=== PATIENT | male | born 1960 | race Caucasian/White ===

== ENCOUNTER 2022-02-06 17:06 | Inpatient (IN) ==
--- NOTE | 2022-02-06 19:43 | History & Physical Report ---
Date of Service February 06, 2022 Assessment & Plan (1) Postoperative infection: Plan: This is a 61-year-old male with a notable history of hypertension and rheumatoid+psoriatic arthritis (not currently on any therapies) who underwent LEFT carpal tunnel release with UOP on 01/19 who presents to [facility] as a direct transfer from [facility] emergency department for management of postoperative infection. Postoperative Infection involving L Hand - Status post left carpal tunnel release with UOP on 01/19 - [facility]: WBC 19.4 / Lactate 2.07 / CRP 26.9 --> Recheck CBC, BMP now - Consult Dr. Liang for possible I&D tomrrow - NPO after midnight - maintain NSS @ 80cc/hr - Transition to Zosyn for Pseudomonal coverage - Continue vancomycin - Pain: frequent icing, Tylenol 1g q8h IV BELIA, morphine 3mg q3 IV PRN for pain, Dilaudid 0.5mg q6h PRN for breakthrough pain - Recheck cultures before ABX here (initially collected at [facility]) (2) Hypertension: Plan: Hold lisinopril hydrochlorothiazide 20/25 until postoperative Hydralazine PRN for SBPs persistently >160/DBP>110 not relieved with analgesics (3) Rheumatoid arthritis: Plan: Reported history, per patient Not currently on any Biologics or daily prednisone therapy Hold home Celebrex until postoperative Plan: code: full dispo: ms/tele ppx: scds diet: npo History of Present Illness Primary Care Provider: NO PCP This is a 61-year-old male with a notable history of hypertension and rheumatoid+psoriatic arthritis (not currently on any therapies) who underwent LEFT carpal tunnel release with UOP on 01/19 who presents to [facility] as a direct transfer from [facility] emergency department out of concerns for postoperative infection. Patient reportedly began experiencing increased redness and swelling around this area over the last several days. He said that there has been increased pain around the site. He reports mild numbness of the fingertips. His outpatient orthopedist did start him on antibiotics, which he has not begun. Unfortunately despite this, the redness/pain continued and has worsened. He presented to [facility] emergency department out of concerns for infection, who then requested transfer here for I&D capabilities tomorrow. I spoke with the NIC steam station supervisor, Freda, to discuss case and obtain more information. She spoke with Dr. Liang, who agreed to see patient tomorrow for likely I&D. Otherwise, before this event, patient says that his only relevant "health event" was recently having a respiratory illness approximately 4 to 5 days ago, for which he did take prednisone for several days. He has not been on prednisone since this time. He denies taking prednisone as chronic prednisone. Report was received directly from patient's nurse at [facility]. During his ER course, a 20-gauge needle was placed in his right antecubital vein. He received clindamycin at 1443, Unasyn at 1647 and vancomycin at 1647. He was given 1 L of fluid. Dilaudid 1 mg and morphine 4 mg were given at 1600 and 1700, respectively. Labs were significant for sodium 133, potassium 3.5, white count 19.4, CRP 26.9, lactate 2.07. She was afebrile. Allergies Allergy/AdvReac Type Severity Reaction Status Date / Time No Known Allergies Allergy Verified 02/06/22 20:19 Home Medications Medication Instructions Recorded Confirmed Type celecoxib 200 mg capsule 200 mg PO DAILY 02/06/22 02/06/22 History lisinopril 20 20 - 25 tab PO DAILY 02/06/22 02/06/22 History mg-hydrochlorothiazide 25 mg tablet terazosin 1 mg capsule 5 mg PO DAILY 02/06/22 02/06/22 History Past Med/Surg History Social History Smoking Status: Former smoker Second Hand Exposure: No; Do You Dip or Chew Tobacco: No; Hx Alcohol Use: Yes Alcohol type: beer Hx Substance Use: No Preferred Language: Yoruba Supervisor Plastering Required: No Beliefs That Will Affect Care: None Current Living Situation: Spouse Other Information That Helps Us Care for You: No Feels Safe at Home: Yes Safety Concerns: Feels Safe At This Time Assistive Devices: Glasses Review of Systems Review of Systems: as per HPI Physical Exam Physical Exam: General: 61-year old male who is alert, oriented, and appears in no acute distress. Body habitus: _. HEENT: NCAT. - Eyes - Sclera are white, anicteric, and without injection. PERRL. - Mouth - MMM with no tonsillar edema or exudates. - Neck - no JVD Cardiac: Normal rate and regular rhythm; S1 and S2 present with no murmurs, rubs, or gallops. Pulmonary: Good respiratory effort with symmetric expansion of the chest. No use of accessory muscles. Lungs were clear to auscultation bilaterally with no crackles or wheezes. Abdominal: Normoactive bowel sounds. Abdomen was soft, nondistended, and non- tender to palpation. Extremities: Examination of the left hand does reveal extensive edematous and erythematous changes with dried pus-like material surrounding the surgical wound; it is nondraining. Edema is worse on the palmar surface. Wrist flexion/extension is greatly limited due to pain and swelling. Finger flexion/extension is also greatly limited due to pain. Capillary refill is 2 seconds at the distal fingertips. Radial pulse is 2+. RUE unremarkable. Supervising Physician Co-Signing Physician Notes Attending addendum: I have supervised the medical residents activities, and agree with the H&P unless as otherwise noted. Assessment and Plan: Postop infection involving left hand- Status post left carpal tunnel release on 01/19 Initially seen at [facility] ED earlier this evening, and referred for direct admission to [facility] Patient will be admitted to medical service, with consult to Dr. Rodney from orthopedic surgery for possible I&D tomorrow Follow blood cultures and sensitivities, initially drawn [facility] Acetaminophen 1 g IV every 8 hours. Mild pain or fever Morphine sulfate 3 mg IV every 3 hours as needed moderate pain Dilaudid 0.5 mg IV every 6 hours as needed breakthrough pain Hypertension Hold lisinopril/HCTZ until postop hydralazine 10 mg IV every 4 hours. Systolic blood pressure greater 160 or diastolic greater than 110 Remaining orders and notations as noted Resident Activity Tracking Resident Involvement: Resident Care Provided Care Provided: Adult Hospital Medicine
[2022-02-06] MEDS ORDERED: PIPERACILL/TAZOBAC CONSULT ACTIVE PRN (20:24)
[2022-02-06] MEDS ORDERED: HYDROmorphone INJ 0.5 MG/0.5 ML SYR IV PRN (20:24)
[2022-02-06] MEDS ORDERED: VANCOMYCIN CONSULT ACTIVE PRN (20:24)
[2022-02-06] MEDS ORDERED: hydrALAZINE HCL 20 MG/ML VIAL IV PRN ×2 (20:28→20:29)
[2022-02-06] MEDS ORDERED: PATIENT'S HEIGHT AND/OR WEIGHT NEEDED SCH (20:30)
[2022-02-06] MEDS ORDERED: PIPERACILLIN/TAZOBACTAM 3.375 GM in DEXTROSE 5% 100 ML IV SCH (20:30)
[2022-02-06] MEDS: MoRPHine SULFATE 4 MG/ML 1 ML CARP\\VIAL IV PRN (20:48)
[2022-02-06] MEDS ORDERED: KETOROLAC TROMETHAMINE 15 MG/ML VIAL IV ONE (21:01)
[2022-02-06 21:06] LABS: Basophils # (auto) 0.03 K/uL (0-0.2); Basophils % (auto) 0.2 %; Eosinophils # (auto) 0.18 K/uL (0-0.5); Eosinophils % (auto) 0.9 %; Hematocrit (blood only) 46.6 % (42-52); Hemoglobin 16.2 g/dL (14.0-18.0); Immature Granulocytes # (auto) 0.11 K/uL (0.00-0.02); Immature Granulocytes % (auto) 0.6 %; Lymphocytes # (auto) 1.56 K/uL (1.2-3.4); Lymphocytes % (auto) 8.1 %; Mean Corpuscular Hemoglobin 29.7 pg (25-34); Mean Corpuscular Hgb Conc 34.8 g/dL (32-36); Mean Corpuscular Volume 85.5 fL (80-100); Mean Platelet Volume 9.6 fL (7.4-10.4); Monocytes % (auto) 8.8 %; Neutrophils # (auto) 15.66 K/uL (1.4-6.5); Neutrophils % (auto) 81.4 %; Platelet Count 272 K/uL (130-400); RDW Coefficient of Variation 13.6 % (11.5-14.5); RDW Standard Deviation 42.5 fL (36.4-46.3); Red Blood Count 5.45 M/uL (4.7-6.1); White Blood Count 19.24 K/uL (4.8-10.8)
[2022-02-06 21:20] LABS: Alanine Aminotransferase 60 U/L (7-52); Albumin Globulin Ratio 1.2 (0.9-2); Albumin Level 3.8 gm/dl (3.4-5.0); Alkaline Phosphatase 164 U/L (34-104); Anion Gap 11 (3-11); BUN Creatinine Ratio 19.3 (10-20); Bilirubin,Total 0.7 mg/dl (0.2-1.0); Blood Urea Nitrogen 17 mg/dl (6-23); Calcium 8.9 mg/dl (8.5-10.1); Carbon Dioxide 21 mmol/L (21-32); Chloride 98 mmol/L (98-107); Est GFR (African American) 108.2 ml/min; Est GFR (Non-African American) 93.4 ml/min; Globulin 3.2 gm/dl (2.5-4.0); Glucose 168 mg/dl (70-99(Fasting)); Sodium 130 mmol/L (136-145)
[2022-02-06 21:55] LABS: Potassium 3.3 mmol/L (3.5-5.1)
[2022-02-06] MEDS: SODIUM CHLORIDE 0.9% 1000ML 1,000 ML IV SCH (21:56)
[2022-02-06] MEDS ORDERED: VANCOMYCIN HCL 1,750 MG in SODIUM CHLORIDE 0.9% 500 ML IV ONE (22:00)
[2022-02-06] MEDS ORDERED: ACETAMINOPHEN 1000 MG/100 ML IV IV SCH (22:00)
[2022-02-06] MEDS ORDERED: PIPERACILLIN/TAZOBACTAM 4.5 GM in DEXTROSE 5% 100 ML IV ONE (22:00)
[2022-02-06] MEDS: ACETAMINOPHEN 1,000 MG/100 ML VIAL IV SCH (22:15)
--- NOTE | 2022-02-06 22:39 | Pharmacy Report ---
Pharmacy Abx/Gly Intl Consult - Date of Service February 06, 2022 - Scope Pharmacy has been consulted by Dr. Alba to manage Vancomycin and Zosyn for this patient as per the Pharmacy & Therapeutics Committee approved dosing protocols. - Subjective The patient is a 61 year old M admitted on 02/06/22 20:18. - Objective Height: 5 ft 9 in Weight: 86.7 kg Vital Signs (Past 12hrs): Vital Signs Temp Pulse Resp BP Pulse Ox 02/06/22 22:08 145/82 H 02/06/22 20:45 36.8 C 114 H 18 168/102 H 96 02/06/22 20:43 36.8 C 114 H 18 168/102 H 96 Accuchecks BSG (last 24hrs): 02/06/22 20:38 Glucose 168 H Lab Results (24hrs): Laboratory Results - last 24 hr 02/06/22 02/06/22 02/06/22 20:38 20:38 20:38 WBC 19.24 H RBC 5.45 Hgb 16.2 Hct 46.6 MCV 85.5 MCH 29.7 MCHC 34.8 RDW Std Deviation 42.5 RDW Coeff of [place] 13.6 Plt Count 272 MPV 9.6 Immature Gran % (Auto) 0.6 Neut % (Auto) 81.4 Lymph % (Auto) 8.1 [place] % (Auto) 8.8 Eos % (Auto) 0.9 Baso % (Auto) 0.2 Neut # (Auto) 15.66 H Lymph # (Auto) 1.56 [place] # (Auto) 1.70 H Eos # (Auto) 0.18 Baso # (Auto) 0.03 Immature Gran # (Auto) 0.11 H Sodium 130 L Potassium Chloride 98 Carbon Dioxide 21 Anion Gap 11 BUN 17 Creatinine 0.88 Est Cr Clr Drug Dosing Not Reportable Est GFR ( Amer) 108.2 Est GFR (Non-Af Amer) 93.4 BUN/Creatinine Ratio 19.3 Glucose 168 H Lactate 2.0 Calcium 8.9 Total Bilirubin 0.7 AST ALT 60 H Alkaline Phosphatase 164 H Total Protein 7.0 Albumin 3.8 Globulin 3.2 Albumin/Globulin Ratio 1.2 SARS-CoV-2, RNA, NAAT 02/06/22 02/06/22 21:15 21:25 WBC RBC Hgb Hct MCV MCH MCHC RDW Std Deviation RDW Coeff of [place] Plt Count MPV Immature Gran % (Auto) Neut % (Auto) Lymph % (Auto) [place] % (Auto) Eos % (Auto) Baso % (Auto) Neut # (Auto) Lymph # (Auto) [place] # (Auto) Eos # (Auto) Baso # (Auto) Immature Gran # (Auto) Sodium Potassium 3.3 L Chloride Carbon Dioxide Anion Gap BUN Creatinine Est Cr Clr Drug Dosing Est GFR ( Amer) Est GFR (Non-Af Amer) BUN/Creatinine Ratio Glucose Lactate Calcium Total Bilirubin AST 21 ALT Alkaline Phosphatase Total Protein Albumin Globulin Albumin/Globulin Ratio SARS-CoV-2, RNA, NAAT NEGATIVE Micro Results: 02/06/22 21:19 Aerobic Blood Culture - Pending Blood Anaerobic Blood Culture - Pending 02/06/22 21:25 Aerobic Blood Culture - Pending Blood Anaerobic Blood Culture - Pending - Plan ANTIMICROBIAL THERAPY Vancomycin IV * Loading dose: 1750mg (20 mg/kg) * Maintenance dose: 1250mg IV (14 mg/kg) every 12 hours * AUC/SUSAN is the preferred PK/PD target for vancomycin * AUC guided dosing is effective and associated with decreased risk of nephrotoxicity compared to traditional trough targets * The above dose is predicted to achieve target AUC/SUSAN of 400-600 mg/L.hr and may be associated with a 15 % risk of nephrotoxicity * Will check a trough level in a few days. Piperacillin/Tazobactam * 4.5 g bolus administered over 30 minutes, then 3.375 g IV extended infusion every 8 hours for CrCl greater than 20 mL/min. Pharmacy will follow patient and adjust orders on a daily basis. Thank you for allowing us to participate in this patients care.
[2022-02-07] MEDS: MoRPHine SULFATE 4 MG/ML 1 ML CARP\\VIAL IV PRN ×2 (02:55→12:12)
[2022-02-07] MEDS: PIPERACILLIN/TAZOBACTAM 3.375 GM in DEXTROSE 5% 100 ML IV SCH ×3 (03:39→20:40)
[2022-02-07] MEDS: VANCOMYCIN HCL 1,250 MG in SODIUM CHLORIDE 0.9% 250 ML IV SCH ×2 (06:10→19:07)
[2022-02-07] MEDS: ACETAMINOPHEN 1,000 MG/100 ML VIAL IV SCH ×3 (06:10→22:07)
[2022-02-07 08:06] LABS: Basophils # (auto) 0.02 K/uL (0-0.2); Basophils % (auto) 0.1 %; Eosinophils # (auto) 0.21 K/uL (0-0.5); Eosinophils % (auto) 1.3 %; Hematocrit (blood only) 40.7 % (42-52); Immature Granulocytes # (auto) 0.09 K/uL (0.00-0.02); Immature Granulocytes % (auto) 0.6 %; Lymphocytes # (auto) 1.12 K/uL (1.2-3.4); Lymphocytes % (auto) 7.1 %; Mean Corpuscular Hemoglobin 29.5 pg (25-34); Mean Corpuscular Hgb Conc 34.4 g/dL (32-36); Mean Corpuscular Volume 85.9 fL (80-100); Mean Platelet Volume 9.5 fL (7.4-10.4); Monocytes # (auto) 1.77 K/uL (0.11-0.59); Monocytes % (auto) 11.1 %; Neutrophils # (auto) 12.67 K/uL (1.4-6.5); Neutrophils % (auto) 79.8 %; Platelet Count 235 K/uL (130-400); RDW Coefficient of Variation 13.7 % (11.5-14.5); RDW Standard Deviation 43.1 fL (36.4-46.3); Red Blood Count 4.74 M/uL (4.7-6.1); White Blood Count 15.88 K/uL (4.8-10.8)
[2022-02-07 08:29] LABS: BUN Creatinine Ratio 16.9 (10-20); Calcium 8.3 mg/dl (8.5-10.1); Creatinine Clr Calc Pharmacy 111.3 ml/min; Est GFR (African American) 114.3 ml/min; Est GFR (Non-African American) 98.6 ml/min; Potassium 3.3 mmol/L (3.5-5.1)
--- NOTE | 2022-02-07 08:50 | Medical Student Progress Note ---
Date of Service February 07, 2022 Assessment & Plan (1) Postoperative infection: Plan: Mr Martinez is 61 year-old male with a history of HTN, rheumatoid arthritis and psoriatic arthritis, currently on and celecoxib. He underwent left carpal tunnel release with UOC on 01/19. He had no complaints following the surgery until 4 days ago where he started having pain, redness and swelling that continued to worsen on outpatient antibiotics. He was transferred from [facility] emergency department where we was started on -concern for post operative cellulitis vs deep tissue infection - WBC 15.88 down from 19.4 - Lactate 2.0 on 02/06 - awaiting blood cultures - Awaiting orthopedic evaluation for possible I&D - NPO in anticipation for I&D - continue pip/tazo - continue vancomycin - frequent icing, Tylenol 1g q8h IV BELIA, morphine 3mg q3 IV PRN for pain, Dilaudid 0.5mg q6h PRN for breakthrough pain (2) Rheumatoid arthritis: Plan: currently on monthly cosentyx infusion continue to hold home Celebrex in anticipation for I&D (3) Psoriatic arthritis: Plan: currently on monthly consyntx infusion--helps with nail pitting continue to hold home Celebrex in anticipation for I&D (4) Hypertension: Plan: continue to hold home lisinopril hydrochlorothiazide 20/25 until postoperative Hydralazine PRN for SBPs persistently >160/DBP>110 not relieved with analgesics (5) Hypokalemia: Plan: Noted on AM labs. 3.3 - added 20 mEq of KCl to IVF - recheck levels tomorrow AM Plan: diet: npo code: full ppx: scds dispo: ms/tele Admission and Anticipated Discharge Date Admission Date: February 06, 2022 Supervising Attestation Medical Student Supervision Note: I was personally present during medical student patient encounter and independently interviewed and examined the patient and verified the jackson history and physical, reviewed labs and image studies, discussed the case with Kerwin Lopez and agree with the findings and care plan. Left hand infection with h/o of carpel tunnel release on 01/19 - For OR today. NPO. continue IV abx - zosyn/vanc. resume antihypertensives in am. Subjective Mr. Martinez is doing well today. He still complains of pain and swelling in his left hand. He also feels his left fingers are numb. Otherwise doing well. Normal appetite, voiding, bowel movements. Does not complain of fevers, chills, chest pain, SOB, nausea, vomiting, numbness/tingling elsewhere Review of Systems Constitutional: no fever, no chills and no sweats Integumentary: + erythema (left hand ) and + skin swelling Neurologic: fingers numbness (left hand) Physical Exam Constitutional: well developed and well nourished; no acute distress Respiratory: normal respiratory effort, lungs clear to auscultation Cardiovascular: RRR, no murmur, no edema Skin: + induration (left hand and forearm ), + erythema (circumfrential extending from hand to antecubital fossa. left), + scar, + incision (well approximated, no drainage, intact, warmth, blanching. L hand ) and + nail pitting (bilateral) Results & Data ([facility]) Vital Signs (Past 12 Hours) Vital Signs Temp Pulse Pulse Resp BP BP Pulse Ox 02/07/22 07:02 37.0 C 82 18 134/80 96 02/07/22 02:48 36.9 C 78 18 129/66 96 02/07/22 01:32 98 H 02/06/22 23:26 37.1 C 94 H 18 134/81 97 02/06/22 22:08 145/82 H 02/06/22 21:00 119 H Laboratory Results Laboratory Results WBC 15.88 K/uL (4.8-10.8) H 02/07/22 07:25 RBC 4.74 M/uL (4.7-6.1) 02/07/22 07:25 Hgb 14.0 g/dL (14.0-18.0) 02/07/22 07:25 Hct 40.7 % (42-52) L 02/07/22 07:25 MCV 85.9 fL (80-100) 02/07/22 07:25 MCH 29.5 pg (25-34) 02/07/22 07:25 MCHC 34.4 g/dL (32-36) 02/07/22 07:25 RDW Std Deviation 43.1 fL (36.4-46.3) 02/07/22 07:25 RDW Coeff of [place] 13.7 % (11.5-14.5) 02/07/22 07:25 Plt Count 235 K/uL (130-400) 02/07/22 07:25 MPV 9.5 fL (7.4-10.4) 02/07/22 07:25 Immature Gran % (Auto) 0.6 % 02/07/22 07:25 Neut % (Auto) 79.8 % 02/07/22 07:25 Lymph % (Auto) 7.1 % 02/07/22 07:25 [place] % (Auto) 11.1 % 02/07/22 07:25 Eos % (Auto) 1.3 % 02/07/22 07:25 Baso % (Auto) 0.1 % 02/07/22 07:25 Neut # (Auto) 12.67 K/uL (1.4-6.5) H 02/07/22 07:25 Lymph # (Auto) 1.12 K/uL (1.2-3.4) L 02/07/22 07:25 [place] # (Auto) 1.77 K/uL (0.11-0.59) H 02/07/22 07:25 Eos # (Auto) 0.21 K/uL (0-0.5) 02/07/22 07:25 Baso # (Auto) 0.02 K/uL (0-0.2) 02/07/22 07:25 Immature Gran # (Auto) 0.09 K/uL (0.00-0.02) H 02/07/22 07:25 Sodium 134 mmol/L (136-145) L 02/07/22 07:25 Potassium 3.3 mmol/L (3.5-5.1) L 02/07/22 07:25 Chloride 102 mmol/L (98-107) 02/07/22 07:25 Carbon Dioxide 25 mmol/L (21-32) 02/07/22 07:25 Anion Gap 7 (3-11) 02/07/22 07:25 BUN 13 mg/dl (6-23) 02/07/22 07:25 Creatinine 0.77 mg/dl (0.6-1.4) 02/07/22 07:25 Est Cr Clr Drug Dosing 111.3 ml/min 02/07/22 07:25 Est GFR ( Amer) 114.3 ml/min 02/07/22 07:25 Est GFR (Non-Af Amer) 98.6 ml/min 02/07/22 07:25 BUN/Creatinine Ratio 16.9 (10-20) 02/07/22 07:25 Glucose 113 mg/dl (70-99(Fasting)) H 02/07/22 07:25 Lactate 2.0 mmol/L (0.4-2.0) 02/06/22 20:38 Calcium 8.3 mg/dl (8.5-10.1) L 02/07/22 07:25 Total Bilirubin 0.7 mg/dl (0.2-1.0) 02/06/22 20:38 AST 21 U/L (13-39) 02/06/22 21:25 ALT 60 U/L (7-52) H 02/06/22 20:38 Alkaline Phosphatase 164 U/L (34-104) H 02/06/22 20:38 Total Protein 7.0 gm/dl (6.0-8.3) 02/06/22 20:38 Albumin 3.8 gm/dl (3.4-5.0) 02/06/22 20:38 Globulin 3.2 gm/dl (2.5-4.0) 02/06/22 20:38 Albumin/Globulin Ratio 1.2 (0.9-2) 02/06/22 20:38 SARS-CoV-2, RNA, NAAT NEGATIVE (NEGATIVE) 02/06/22 21:15 Medications Administered Current Medications Hydralazine HCl (Hydralazine Hcl 20 Mg/Ml Vial) 5 mg IV Q4H PRN PRN Reason: SBP>160;DBP>110 Stop: 03/08/22 20:27 Hydromorphone HCl (Hydromorphone Inj 0.5 Mg/0.5 Ml Syr) 0.5 mg IV Q6H PRN PRN Reason: Moderate Pain Stop: 02/20/22 20:23 Last Admin: 02/07/22 08:41 Dose: 0.5 mg Documented by: Sodium Chloride (Nss 1000ml) 1,000 mls @ 80 mls/hr IV .[id number] BELIA Stop: 03/08/22 20:29 Last Admin: 02/06/22 21:56 Dose: 80 mls/hr Documented by: Piperacillin Sod/Tazobactam (Sod 3.375 gm/ Dextrose) 115 mls @ 28.75 mls/hr IV Q8H BELIA; Protocol Stop: 02/14/22 03:59 Last Infusion: 02/07/22 08:23 Dose: Infused Documented by: Acetaminophen (Ofirmev) 1,000 mg in 100 mls @ 400 mls/hr IV Q8H BELIA; Protocol Stop: 02/09/22 21:59 Last Infusion: 02/07/22 06:26 Dose: Infused Documented by: Vancomycin HCl 1,250 mg/ (Sodium Chloride) 275 mls @ 200 mls/hr IV Q12H BELIA Stop: 02/14/22 05:59 Last Infusion: 02/07/22 08:23 Dose: Infused Documented by: Miscellaneous Information (Piperacill/Tazobac Consult Active) 1 ea N/A UD PRN PRN Reason: Consult Stop: 03/08/22 20:23 Miscellaneous Information (Vancomycin Consult Active) 1 ea N/A UD PRN PRN Reason: Consult Stop: 03/08/22 20:23 Morphine Sulfate (Morphine Sulfate 4 Mg/Ml 1 Ml Carp\Vial) 3 mg IV Q3H PRN PRN Reason: Severe Pain Stop: 02/20/22 20:23 Last Admin: 02/07/22 02:55 Dose: 3 mg Documented by:
--- NOTE | 2022-02-07 10:35 | Billing Data ---
Date of Service February 07, 2022 Coding Level of Care Code 28611 Initial Inpt Care Lvl 2
[2022-02-07] MEDS: SODIUM CHLORIDE 0.9% 1000ML 1,000 ML IV SCH (10:45)
[2022-02-07] MEDS: NSS + 20MEQ KCL 20 MEQ/1,000 ML BAG IV SCH (11:07)
[2022-02-07] MEDS ORDERED: PROPOFOL IV EMULSION 10 MG/ML 20 ML VIAL IV ONE (14:00)
[2022-02-07] MEDS ORDERED: LIDOCAINE 2% 2 ML VIAL/AMP(20MG/ML) INFIL ONE (14:00)
[2022-02-07] MEDS ORDERED: ONDANSETRON INJ 2 MG/ML 2 ML VIAL ONE (14:00)
[2022-02-07] MEDS ORDERED: DEXAMETHASONE SOD INJ 4 MG/ML VIAL ONE (14:00)
[2022-02-07] MEDS ORDERED: MIDAZOLAM HCL 1 MG/ML 2ML VIAL ONE (14:00)
[2022-02-07] MEDS ORDERED: fentaNYL citrate 100 MCG/2 ML VIAL ONE ×2 (14:01→17:07)
--- NOTE | 2022-02-07 16:04 | Anesthesiology Consultation ---
Date of Service February 07, 2022 Assessment & Plan (1) Encounter for pre-operative examination: Chart Review Chart Review: Acceptable Risk for Surgery and Patient NOT seen in Pre Admission Testing Consults Requested none History Surgery Operation Date: 02/07/22 13:05 Proposed Procedures p Left Hand Incision and Drainage - Jus Liang MD Height/Weight Height: 5 ft 9 in Weight: 86.7 kg Allergies Allergy/AdvReac Type Severity Reaction Status Date / Time No Known Allergies Allergy Verified 02/06/22 20:19 Medications Home Medications Medication Instructions Recorded Confirmed Last Taken celecoxib 200 mg capsule 200 mg PO DAILY 02/06/22 02/06/22 02/06/22 07:00 lisinopril 20 20 - 25 tab PO DAILY 02/06/22 02/06/22 02/06/22 07:00 mg-hydrochlorothiazide 25 mg tablet terazosin 1 mg capsule 5 mg PO DAILY 02/06/22 02/06/22 02/06/22 07:00 Active Medications Generic Name Dose Route Start Last Admin Trade Name Freq PRN Reason Stop Dose Admin Hydromorphone HCl 0.5 mg 02/06/22 20:24 02/07/22 08:41 Hydromorphone Inj 0.5 Mg/0.5 Ml Syr IV 02/20/22 20:23 0.5 mg Q6H PRN Administration Moderate Pain Piperacillin Sod/Tazobactam 115 mls @ 28.75 mls/hr 02/07/22 04:00 02/07/22 12:01 Sod 3.375 gm/ Dextrose IV 02/14/22 03:59 28.8 mls/hr Q8H BELIA Administration Protocol Acetaminophen 1,000 mg in 100 mls @ 400 mls/hr 02/06/22 22:00 02/07/22 14:05 Ofirmev IV 02/09/22 21:59 Infused Q8H BELIA Infusion Protocol Vancomycin HCl 1,250 mg/ 275 mls @ 200 mls/hr 02/07/22 06:00 02/07/22 08:23 Sodium Chloride IV 02/14/22 05:59 Infused Q12H BELIA Infusion Potassium Chloride/Sodium Chloride 20 meq in 1,000 mls @ 80 mls/hr 02/07/22 10:30 02/07/22 11:07 Normal Saline W/20 Meq Kcl IV 03/09/22 10:29 80 mls/hr .[id number] BELIA Administration Morphine Sulfate 3 mg 02/06/22 20:24 02/07/22 12:12 Morphine Sulfate 4 Mg/Ml 1 Ml Carp\Vial IV 02/20/22 20:23 3 mg Q3H PRN Administration Severe Pain Past Medical History Medical History Hypertension Hypokalemia Psoriatic arthritis Rheumatoid arthritis Social History Smoking Status: Former smoker Do You Dip or Chew Tobacco: No Hx Alcohol Use: Yes Alcohol type: beer alcohol intake frequency: a few times a week Hx Substance Use: No Physical Exam Vital Signs Last Vital Signs Temp 98.4 F 02/07/22 15:11 Pulse 73 02/07/22 15:11 Resp 18 02/07/22 15:11 BP 137/75 02/07/22 15:11 Pulse Ox 96 02/07/22 15:11 Testing Laboratory Results 02/07/22 07:25 02/07/22 07:25
[2022-02-07] MEDS ORDERED: ATROPINE SULFATE 0.1 MG/ML 10ML SYR IV PRN (16:21)
[2022-02-07] MEDS ORDERED: ePHEDrine sulfate 50 MG/ML AMP IV PRN (16:21)
[2022-02-07] MEDS ORDERED: ONDANSETRON INJ 2 MG/ML 2 ML VIAL IV PRN (16:21)
[2022-02-07] MEDS ORDERED: BUPIVACAINE 0.5 % 5 MG/1 ML MPF 30ML VIAL ONE (16:36)
[2022-02-07] MEDS ORDERED: ceFAZolin 2,000 MG/15 ML IV PUSH IV ONE (16:40)
--- NOTE | 2022-02-07 16:42 | History & Physical Bridge Note ---
Date of Service February 07, 2022 History & Physical Bridge Note I have examined the patient, reviewed the History & Physical and in the interval since the performance of the History & Physical I have noted the following changes of clinical significance: no changes noted I saw the patient in preoperative holding area we discussed risks benefits and reasonable outcomes and expectations for: Left hand irrigation and debridement with flexor tenosynovectomy.
[2022-02-07] MEDS ORDERED: ceFAZolin 2000MG 2,000 MG/15 ML SYR IV SCH (17:00)
[2022-02-07] MEDS ORDERED: LACTATED RINGER'S 1,000 ML IV SCH (17:00)
[2022-02-07] MEDS ORDERED: KETOROLAC 30 MG/ML VIAL ONE (17:07)
--- NOTE | 2022-02-07 17:40 | Post Operative Brief Note ---
Immediate Post Op Note v1 Date of Surgery February 07, 2022 Pre & Post Diagnosis Operation Date: 02/07/22 13:05 Pre-Op Diagnosis: left hand infection Post-Op Diagnosis: left hand infection I identified the patient and participated in the time-out.: Yes Procedure Operation Date: 02/07/22 13:05 Actual Procedures p Left Hand Incision and Drainage(Left) - Jus Liang MD Surgeon Jus Liang MD Home Health Care Provider None Estimated Blood Loss 2 Findings Consistent with Post-Op Diagnosis Gross purulence consistent with abscess in the carpal tunnel
[2022-02-07] MEDS: fentaNYL citrate 100 MCG/2 ML VIAL IV PRN ×4 (18:02→18:17)
[2022-02-07] MEDS ORDERED: HYDROmorphone INJ 0.5 MG/0.5 ML SYR IV STA (18:26)
[2022-02-07] MEDS ORDERED: LABETALOL HCL IV 5 MG/ML 20ML IV STA (18:26)
[2022-02-07] MEDS ORDERED: LABETALOL HCL IV 5 MG/ML 20ML IV ONE (18:26)
--- NOTE | 2022-02-07 18:45 | Anesthesiology Progress Note ---
Date of Service February 07, 2022 Anesthesia Post Procedure Vital Signs Vital Signs: Temp Pulse Pulse Pulse Resp BP BP 02/07/22 18:40 70 16 167/92 H 02/07/22 18:30 71 14 165/92 H 02/07/22 18:20 75 16 163/90 H 02/07/22 18:10 72 18 174/99 H 02/07/22 18:00 67 15 170/98 H 02/07/22 17:50 66 12 165/96 H 02/07/22 17:43 36.3 C L 73 20 167/96 H 02/07/22 16:21 76 02/07/22 16:15 37.7 C H 80 20 138/80 02/07/22 15:11 36.9 C 73 18 137/75 02/07/22 11:41 37.3 C 75 18 155/88 H 02/07/22 08:30 82 02/07/22 07:02 37.0 C 82 18 134/80 02/07/22 02:48 36.9 C 78 18 129/66 02/07/22 01:32 98 H 02/06/22 23:26 37.1 C 94 H 18 134/81 02/06/22 22:08 145/82 H 02/06/22 21:00 119 H 02/06/22 20:45 36.8 C 114 H 18 168/102 H 02/06/22 20:43 36.8 C 114 H 18 168/102 H Pulse Ox 02/07/22 18:40 97 02/07/22 18:30 96 02/07/22 18:20 87 L 02/07/22 18:10 96 02/07/22 18:00 97 02/07/22 17:50 98 02/07/22 17:43 97 02/07/22 16:21 02/07/22 16:15 97 02/07/22 15:11 96 02/07/22 11:41 98 02/07/22 08:30 02/07/22 07:02 96 02/07/22 02:48 96 02/07/22 01:32 02/06/22 23:26 97 02/06/22 22:08 02/06/22 21:00 02/06/22 20:45 96 02/06/22 20:43 96 Pain Intensity Left Hand: Pain Intensity: 2 Transfer of Care Handoff Completed per policy Notes Mental Status: alert / awake / arousable Patient Amnestic to Procedure: Yes Nausea / Vomiting: adequately controlled Pain: adequately controlled Airway Patency, RR, SpO2: stable & adequate BP & HR: stable & adequate Hydration State: stable & adequate Anesthetic Complications: no major complications apparent and Pt Satisfied with anesthetic care
--- NOTE | 2022-02-08 02:36 | Consultation Report ---
ORTHOPEDIC CONSULTATION HISTORY OF PRESENT ILLNESS: This 61-year-old male is known to me from carpal tunnel release done on 01/19/2022. He notes increasing pain and redness in the left extremity in the region of the surgical site. Symptoms began on Monday and have progressed. He was placed on antibiotics as an outpatie nt, but has failed antibiotics and notes increasing redness. He is admitted to [facility]. He or iginally went to ER, was a direct transfer. Laboratory studies at [facility], white count 19. Lactate 2.0 7, CRP 26.9. Left hand exam does show moderate to significant swelling in the volar aspect of the ca rpal tunnel and extending into the forearm. He has ascending erythema to the mid humerus. He has galeas pple short arc motion of the radiocarpal joint without evidence of significant effusion in the joint. He has purulence under the skin in the region of the surgical incision, but no active drainage. PAST MEDICAL HISTORY: Includes psoriatic arthritis. MEDICATIONS: Include Cosentyx. PHYSICAL EXAMINATION: The patient can flex and extend the digits, but exam is limited secondary to d iscomfort. He has moderate swelling in the digits. He has grossly intact sensation to light touch i n the fingers and fingers are warm and well perfused. ASSESSMENT: Postoperative infection, left hand. PLAN: At this point in time, we will take him urgently to the operating room for, 1. Left hand irrigation and debridement. 2. Left hand flexor tenosynovectomy. Will continue Zosyn and vancomycin pending cultures. Continue Tylenol, morphine, and Dilaudid as nee ded for pain. We appreciate the hospitalist's input and management. Will continue to follow. I saw the patient prior to surgical treatment. We discussed risks, benefits, reasonable outcomes, and exp ectations for surgical treatment. Job ID: [id number]
[2022-02-08] MEDS: NSS + 20MEQ KCL 20 MEQ/1,000 ML BAG IV SCH ×2 (02:37→11:42)
--- NOTE | 2022-02-08 04:03 | Operative Report (OR) ---
PREOPERATIVE DIAGNOSIS: Left hand abscess. POSTOPERATIVE DIAGNOSIS: Left hand abscess. PROCEDURE: Left hand incision and drainage of abscess. SURGEON: Jus Liang MD. JUNIOR BUYER: None. ANESTHESIA: General. INDICATIONS: This is a 61-year-old gentleman with progressive pain and swelling in the hand. He is approximately 3 weeks status post carpal tunnel release and is currently on Cosentyx for psoriatic ar thritis. He presents for I and D with possible flexor tenosynovectomy. The risks and benefits have been discussed including, but not limited to, risk of infection, nerve in jury, stiffness, loss of motion, failure to improve, etc. Reasonable outcomes and options of treatmen t were discussed. An explanation of appropriate alternatives to the procedure that may be advantageou s were discussed and their risks and benefits, as well as the risks and benefits of not proceeding wi th treatment. I offered to answer any additional inquiries concerning the treatment involved. All the patients questions were answered. The patient is agreeable, understanding of the treatment plan and alternatives, and wishes to proceed with the treatment plan. FINDINGS: Gross purulence in the carpal tunnel consistent with abscess. DESCRIPTION OF PROCEDURE: I made a longitudinal incision in line with the patient's previous incisio n and extended slightly proximally and distally. Dissection was carried down through the skin and galeas bcutaneous tissues. I entered into the carpal tunnel. A large amount of gross purulence was encounte red. I sent two sets of cultures. I performed an incision and drainage of abscess and the area was debrided of skin, subcutaneous tissue and fascia. I took great care to protect the median nerve and identify this. The infection did appear to be in the carpal tunnel, but did not appear to be intimat ed with the flexor tendons. I did not identify significant infectious flexor tenosynovitis, so I nisha cted to not proceed with further tenosynovectomy. I irrigated the area with 5 liters of normal saline. Once this was accomplished, the wound looked ve ry clean. A tourniquet was let down. Hemostasis obtained with a bipolar electrocautery. Incision w as closed with a 4-0 nylon in a mattress fashion. I placed packing in the mid aspect of the incision . The patient was placed in soft dressing and sent to PACU in stable condition. POSTOPERATIVE PLAN: Will be elevation, range of motion of the digits. Continue antibiotics as per h ospitalist with adjustment of antibiotics as per cultures. We will follow the wound closely. Job ID: [id number]
[2022-02-08] MEDS: PIPERACILLIN/TAZOBACTAM 3.375 GM in DEXTROSE 5% 100 ML IV SCH ×2 (04:26→11:36)
[2022-02-08] MEDS: VANCOMYCIN HCL 1,250 MG in SODIUM CHLORIDE 0.9% 250 ML IV SCH ×2 (06:03→18:01)
[2022-02-08] MEDS: ACETAMINOPHEN 1,000 MG/100 ML VIAL IV SCH ×4 (06:04→23:06)
[2022-02-08 07:48] LABS: Basophils # (auto) 0.01 K/uL (0-0.2); Basophils % (auto) 0.1 %; Eosinophils # (auto) 0.03 K/uL (0-0.5); Eosinophils % (auto) 0.2 %; Hematocrit (blood only) 38.6 % (42-52); Hemoglobin 13.2 g/dL (14.0-18.0); Immature Granulocytes # (auto) 0.13 K/uL (0.00-0.02); Immature Granulocytes % (auto) 0.7 %; Lymphocytes # (auto) 1.22 K/uL (1.2-3.4); Lymphocytes % (auto) 6.3 %; Mean Corpuscular Hemoglobin 30.2 pg (25-34); Mean Corpuscular Hgb Conc 34.2 g/dL (32-36); Mean Corpuscular Volume 88.3 fL (80-100); Mean Platelet Volume 9.7 fL (7.4-10.4); Monocytes # (auto) 1.31 K/uL (0.11-0.59); Monocytes % (auto) 6.8 %; Neutrophils # (auto) 16.66 K/uL (1.4-6.5); Neutrophils % (auto) 85.9 %; Platelet Count 263 K/uL (130-400); RDW Standard Deviation 45.2 fL (36.4-46.3); Red Blood Count 4.37 M/uL (4.7-6.1); White Blood Count 19.36 K/uL (4.8-10.8)
[2022-02-08 09:02] LABS: Creatinine Clr Calc Pharmacy 119.7 ml/min; Est GFR (African American) 117.5 ml/min; Est GFR (Non-African American) 101.4 ml/min
[2022-02-08 09:12] LABS: BUN Creatinine Ratio 23.9 (10-20); Calcium 8.3 mg/dl (8.5-10.1); Creatinine Clr Calc Pharmacy 121.3 ml/min; Est GFR (African American) 118.2 ml/min; Potassium 4.2 mmol/L (3.5-5.1)
--- NOTE | 2022-02-08 10:07 | Medical Student Progress Note ---
Date of Service February 08, 2022 Assessment & Plan (1) Postoperative infection: Plan: Mr Martinez is 61 year-old male with a history of HTN, rheumatoid arthritis and psoriatic arthritis, currently on and celecoxib. He underwent left carpal tunnel release with UOC on 01/19. He had no complaints following the surgery until 4 days ago where he started having pain, redness and swelling that continued to worsen on outpatient antibiotics. He was transferred from [facility] emergency department. -Currently Status post I&D -intraoperative cultures growing gram + staph, awaiting speciation - WBC 19 - Lactate 2.0 on 02/06 - blood cultures negative at 48 hours - discontinue pip/tazo - continue vancomycin - consider deescalation antibiotics to ceftriaxone pending intraoperative cultures speciation - frequent icing, Tylenol 1g q8h IV BELIA, morphine 3mg q3 IV PRN for pain, Dilaudid 0.5mg q6h PRN for breakthrough pain (2) Rheumatoid arthritis: Plan: currently on monthly cosentyx infusion continue home Celebrex (3) Psoriatic arthritis: Plan: currently on monthly consyntx infusion--helps with nail pitting continue home Celebrex (4) Hypertension: Plan: resume home lisinopril hydrochlorothiazide 20/25 mg PO discontinue Hydralazine (5) Hypokalemia: Plan: resolved. 4.4 on AM labs - recheck levels tomorrow AM Plan: diet: normal code: full ppx: scds dispo: ms/tele Admission and Anticipated Discharge Date Admission Date: February 06, 2022 Supervising Attestation Medical Student Supervision Note: I was personally present during medical student patient encounter and independently interviewed and examined the patient and verified the jackson history and physical, reviewed labs and image studies, discussed the case with Kerwin Lopez and agree with the findings and care plan. Possible sepsis due to postoperative left hand infection - treat underlying infection s/p I and D - continue IV abx until final culture results are back. Subjective Mr. Martinez is doing well today. Status post I&D. He feels some improvement but has postoperative pain that is well controlled with mediations. Otherwise doing well. Normal appetite, voiding, bowel movements. Does not complain of fevers, chills, chest pain, SOB, nausea, vomiting, numbness/tingling elsewhere Review of Systems Constitutional: no fever, no chills and no sweats Respiratory: no cough, no chest congestion and no dyspnea Cardiovascular: no chest pain and no dyspnea on exertion Integumentary: post operative left hand pain/swelling Physical Exam Constitutional: well developed and well nourished; no acute distress Respiratory: normal respiratory effort, lungs clear to auscultation Cardiovascular: RRR, no murmur, no edema Skin: + incision (L hand. post operative dressing ) and + nail pitting (bi lateral) Results & Data ([facility]) Vital Signs (Past 12 Hours) Vital Signs Temp Pulse Pulse Resp BP BP Pulse Ox 02/08/22 07:35 58 L 02/08/22 07:13 36.7 C 62 18 131/75 98 02/08/22 03:44 36.4 C L 61 18 114/60 95 02/07/22 23:36 36.3 C L 66 18 118/72 98 02/07/22 23:20 63 02/07/22 22:20 36.5 C 60 20 108/64 97 Laboratory Results Laboratory Results WBC 19.36 K/uL (4.8-10.8) H 02/08/22 06:49 RBC 4.37 M/uL (4.7-6.1) L 02/08/22 06:49 Hgb 13.2 g/dL (14.0-18.0) L 02/08/22 06:49 Hct 38.6 % (42-52) L 02/08/22 06:49 MCV 88.3 fL (80-100) 02/08/22 06:49 MCH 30.2 pg (25-34) 02/08/22 06:49 MCHC 34.2 g/dL (32-36) 02/08/22 06:49 RDW Std Deviation 45.2 fL (36.4-46.3) 02/08/22 06:49 RDW Coeff of [place] 14.0 % (11.5-14.5) 02/08/22 06:49 Plt Count 263 K/uL (130-400) 02/08/22 06:49 MPV 9.7 fL (7.4-10.4) 02/08/22 06:49 Immature Gran % (Auto) 0.7 % 02/08/22 06:49 Neut % (Auto) 85.9 % 02/08/22 06:49 Lymph % (Auto) 6.3 % 02/08/22 06:49 [place] % (Auto) 6.8 % 02/08/22 06:49 Eos % (Auto) 0.2 % 02/08/22 06:49 Baso % (Auto) 0.1 % 02/08/22 06:49 Neut # (Auto) 16.66 K/uL (1.4-6.5) H 02/08/22 06:49 Lymph # (Auto) 1.22 K/uL (1.2-3.4) 02/08/22 06:49 [place] # (Auto) 1.31 K/uL (0.11-0.59) H 02/08/22 06:49 Eos # (Auto) 0.03 K/uL (0-0.5) 02/08/22 06:49 Baso # (Auto) 0.01 K/uL (0-0.2) 02/08/22 06:49 Immature Gran # (Auto) 0.13 K/uL (0.00-0.02) H 02/08/22 06:49 Sodium 135 mmol/L (136-145) L 02/08/22 06:49 Potassium 4.2 mmol/L (3.5-5.1) D 02/08/22 06:49 Chloride 105 mmol/L (98-107) 02/08/22 06:49 Carbon Dioxide 26 mmol/L (21-32) 02/08/22 06:49 Anion Gap 4 (3-11) 02/08/22 06:49 BUN 17 mg/dl (6-23) 02/08/22 06:49 Creatinine 0.71 mg/dl (0.6-1.4) 02/08/22 06:49 Creatinine 0.72 mg/dl (0.6-1.4) 02/08/22 06:49 Est Cr Clr Drug Dosing 119.7 ml/min 02/08/22 06:49 Est Cr Clr Drug Dosing 121.3 ml/min 02/08/22 06:49 Est GFR ( Amer) 117.5 ml/min 02/08/22 06:49 Est GFR ( Amer) 118.2 ml/min 02/08/22 06:49 Est GFR (Non-Af Amer) 101.4 ml/min 02/08/22 06:49 Est GFR (Non-Af Amer) 102.0 ml/min 02/08/22 06:49 BUN/Creatinine Ratio 23.9 (10-20) H 02/08/22 06:49 Glucose 114 mg/dl (70-99(Fasting)) H 02/08/22 06:49 Lactate 2.0 mmol/L (0.4-2.0) 02/06/22 20:38 Calcium 8.3 mg/dl (8.5-10.1) L 02/08/22 06:49 Total Bilirubin 0.7 mg/dl (0.2-1.0) 02/06/22 20:38 AST 21 U/L (13-39) 02/06/22 21:25 ALT 60 U/L (7-52) H 02/06/22 20:38 Alkaline Phosphatase 164 U/L (34-104) H 02/06/22 20:38 Total Protein 7.0 gm/dl (6.0-8.3) 02/06/22 20:38 Albumin 3.8 gm/dl (3.4-5.0) 02/06/22 20:38 Globulin 3.2 gm/dl (2.5-4.0) 02/06/22 20:38 Albumin/Globulin Ratio 1.2 (0.9-2) 02/06/22 20:38 SARS-CoV-2, RNA, NAAT NEGATIVE (NEGATIVE) 02/06/22 21:15 Medications Administered Current Medications Lisinopril/HCTZ (Lisinopril/Hctz 20/25mg 1 Tab) 1 tab PO DAILY BELIA Stop: 03/10/22 10:14 Hydralazine HCl (Hydralazine Hcl 20 Mg/Ml Vial) 5 mg IV Q4H PRN PRN Reason: SBP>160;DBP>110 Stop: 03/08/22 20:27 Hydromorphone HCl (Hydromorphone Inj 0.5 Mg/0.5 Ml Syr) 0.5 mg IV Q6H PRN PRN Reason: Moderate Pain Stop: 02/20/22 20:23 Last Admin: 02/07/22 08:41 Dose: 0.5 mg Documented by: Piperacillin Sod/Tazobactam (Sod 3.375 gm/ Dextrose) 115 mls @ 28.75 mls/hr IV Q8H [facility]; Protocol Stop: 02/14/22 03:59 Last Infusion: 02/08/22 08:40 Dose: Infused Documented by: Acetaminophen (Ofirmev) 1,000 mg in 100 mls @ 400 mls/hr IV Q8H [facility]; Protocol Stop: 02/09/22 21:59 Last Infusion: 02/08/22 06:23 Dose: Infused Documented by: Vancomycin HCl 1,250 mg/ (Sodium Chloride) 275 mls @ 200 mls/hr IV Q12H [facility] Stop: 02/14/22 05:59 Last Infusion: 02/08/22 07:28 Dose: Infused Documented by: Potassium Chloride/Sodium Chloride (Normal Saline W/20 Meq Kcl) 20 meq in 1,000 mls @ 80 mls/hr IV .[id number] [facility] Stop: 03/09/22 10:29 Last Admin: 02/08/22 02:37 Dose: 80 mls/hr Documented by: Miscellaneous Information (Piperacill/Tazobac Consult Active) 1 ea N/A UD PRN PRN Reason: Consult Stop: 03/08/22 20:23 Miscellaneous Information (Vancomycin Consult Active) 1 ea N/A UD PRN PRN Reason: Consult Stop: 03/08/22 20:23 Morphine Sulfate (Morphine Sulfate 4 Mg/Ml 1 Ml Carp\Vial) 3 mg IV Q3H PRN PRN Reason: Severe Pain Stop: 02/20/22 20:23 Last Admin: 02/07/22 12:12 Dose: 3 mg Documented by:
[2022-02-08] MEDS ORDERED: MoRPHine SULFATE 4 MG/ML 1 ML CARP\\VIAL IV PRN (11:15)
[2022-02-08] MEDS: LISINOPRIL/HCTZ 20/25MG 1 TAB PO SCH (11:36)
--- NOTE | 2022-02-08 15:08 | Orthopedic Progress Note ---
Date of Service February 08, 2022 Assessment & Plan (1) Wound infection: Plan: Postop day 1 status post I&D left hand abscess Culture showing staph species. Patient continued on vancomycin for now. Zosyn discontinued. Continue daily dressing changes. Admission and Anticipated Discharge Date Admission Date: February 06, 2022 Subjective Postop day 1 Patient sitting up in bed awake and alert. No complaints today. Pain is controlled. Physical Exam Physical Exam: Dressings removed. All iodoform packing removed. Patient has a slight purulent looking central portion of the wound with some skin maceration surrounding. No foul odor. Most of the drainage is a bloody serous drainage. Some mild ecchymosis in the palm of the hand. Patient is moving all of his fingers. He states that he has some residual numbness in all of his fingertips. Capillary refill is less than 2 seconds. Wound redressed. Results & Data ([facility]) Vital Signs (Past 12 Hours) Vital Signs Temp Pulse Pulse Resp BP BP Pulse Ox 02/08/22 14:59 36.7 C 63 18 125/75 98 02/08/22 07:35 58 L 02/08/22 07:13 36.7 C 62 18 131/75 98 02/08/22 03:44 36.4 C L 61 18 114/60 95 Laboratory Results Laboratory Results WBC 19.36 K/uL (4.8-10.8) H 02/08/22 06:49 RBC 4.37 M/uL (4.7-6.1) L 02/08/22 06:49 Hgb 13.2 g/dL (14.0-18.0) L 02/08/22 06:49 Hct 38.6 % (42-52) L 02/08/22 06:49 MCV 88.3 fL (80-100) 02/08/22 06:49 MCH 30.2 pg (25-34) 02/08/22 06:49 MCHC 34.2 g/dL (32-36) 02/08/22 06:49 RDW Std Deviation 45.2 fL (36.4-46.3) 02/08/22 06:49 RDW Coeff of [place] 14.0 % (11.5-14.5) 02/08/22 06:49 Plt Count 263 K/uL (130-400) 02/08/22 06:49 MPV 9.7 fL (7.4-10.4) 02/08/22 06:49 Immature Gran % (Auto) 0.7 % 02/08/22 06:49 Neut % (Auto) 85.9 % 02/08/22 06:49 Lymph % (Auto) 6.3 % 02/08/22 06:49 [place] % (Auto) 6.8 % 02/08/22 06:49 Eos % (Auto) 0.2 % 02/08/22 06:49 Baso % (Auto) 0.1 % 02/08/22 06:49 Neut # (Auto) 16.66 K/uL (1.4-6.5) H 02/08/22 06:49 Lymph # (Auto) 1.22 K/uL (1.2-3.4) 02/08/22 06:49 [place] # (Auto) 1.31 K/uL (0.11-0.59) H 02/08/22 06:49 Eos # (Auto) 0.03 K/uL (0-0.5) 02/08/22 06:49 Baso # (Auto) 0.01 K/uL (0-0.2) 02/08/22 06:49 Immature Gran # (Auto) 0.13 K/uL (0.00-0.02) H 02/08/22 06:49 Sodium 135 mmol/L (136-145) L 02/08/22 06:49 Potassium 4.2 mmol/L (3.5-5.1) D 02/08/22 06:49 Chloride 105 mmol/L (98-107) 02/08/22 06:49 Carbon Dioxide 26 mmol/L (21-32) 02/08/22 06:49 Anion Gap 4 (3-11) 02/08/22 06:49 BUN 17 mg/dl (6-23) 02/08/22 06:49 Creatinine 0.71 mg/dl (0.6-1.4) 02/08/22 06:49 Creatinine 0.72 mg/dl (0.6-1.4) 02/08/22 06:49 Est Cr Clr Drug Dosing 119.7 ml/min 02/08/22 06:49 Est Cr Clr Drug Dosing 121.3 ml/min 02/08/22 06:49 Est GFR ( Amer) 117.5 ml/min 02/08/22 06:49 Est GFR ( Amer) 118.2 ml/min 02/08/22 06:49 Est GFR (Non-Af Amer) 101.4 ml/min 02/08/22 06:49 Est GFR (Non-Af Amer) 102.0 ml/min 02/08/22 06:49 BUN/Creatinine Ratio 23.9 (10-20) H 02/08/22 06:49 Glucose 114 mg/dl (70-99(Fasting)) H 02/08/22 06:49 Lactate 2.0 mmol/L (0.4-2.0) 02/06/22 20:38 Calcium 8.3 mg/dl (8.5-10.1) L 02/08/22 06:49 Total Bilirubin 0.7 mg/dl (0.2-1.0) 02/06/22 20:38 AST 21 U/L (13-39) 02/06/22 21:25 ALT 60 U/L (7-52) H 02/06/22 20:38 Alkaline Phosphatase 164 U/L (34-104) H 02/06/22 20:38 Total Protein 7.0 gm/dl (6.0-8.3) 02/06/22 20:38 Albumin 3.8 gm/dl (3.4-5.0) 02/06/22 20:38 Globulin 3.2 gm/dl (2.5-4.0) 02/06/22 20:38 Albumin/Globulin Ratio 1.2 (0.9-2) 02/06/22 20:38 SARS-CoV-2, RNA, NAAT NEGATIVE (NEGATIVE) 02/06/22 21:15
[2022-02-08] MEDS ORDERED: VANCOMYCIN TROUGH ONE (17:30)
--- NOTE | 2022-02-08 17:45 | Communication Note ---
Date of Service: February 08, 2022 Stable for downgrade from med tele to med/surg. Transfer order placed.
--- NOTE | 2022-02-08 21:09 | Pharmacy Report ---
Pharmacy Vanc AUC Short Note - Date of Service February 08, 2022 - Assessment & Plan Assessment 61 year old M receiving IV vancomycin for treatment of wound infection. Pertinent microbiologic data includes: hand wound culture is growing staph; blood cultures show no growth after 24 hours Day # 3 of antimicrobial therapy. Plan Vancomycin * Trough level is 7.3 mg/mL, which is less than the target AUC/SUSAN of 400 (approximately 365 mg/L.hr) * Vancomycin dose is increased to 1500 mg IV q12h, which is predicated to achieve a target AUC/SUSAN of 438 mg/L.hr * AUC/SUSAN is the preferred PK/PD target for vancomycin * AUC guided dosing is effective and associated with decreased risk of nephrotoxicity compared to traditional trough targets * Trough level would be obtained prior to the 4th dose or sooner if renal function declines Pharmacy will continue to follow and will adjust dose/frequency as necessary. Thank you.
[2022-02-09] MEDS ORDERED: VANCOMYCIN HCL 1,500 MG in SODIUM CHLORIDE 0.9% 500 ML IV SCH (06:00)
[2022-02-09] MEDS: ACETAMINOPHEN 1,000 MG/100 ML VIAL IV SCH ×2 (06:01→14:22)
[2022-02-09 08:12] LABS: Hematocrit (blood only) 39.4 % (42-52); Hemoglobin 13.4 g/dL (14.0-18.0); Mean Corpuscular Hemoglobin 30.1 pg (25-34); Mean Corpuscular Volume 88.5 fL (80-100); Mean Platelet Volume 9.3 fL (7.4-10.4); Platelet Count 324 K/uL (130-400); RDW Coefficient of Variation 14.3 % (11.5-14.5); RDW Standard Deviation 46.6 fL (36.4-46.3); Red Blood Count 4.45 M/uL (4.7-6.1); White Blood Count 10.43 K/uL (4.8-10.8)
[2022-02-09 08:35] LABS: Calcium 8.5 mg/dl (8.5-10.1); Est GFR (African American) 116.9 ml/min; Est GFR (Non-African American) 100.8 ml/min; Potassium 3.8 mmol/L (3.5-5.1)
[2022-02-09 08:40] LABS: Basophils # (auto) 0.05 K/uL (0-0.2); Basophils % (auto) 0.5 %; Eosinophils # (auto) 0.22 K/uL (0-0.5); Eosinophils % (auto) 2.1 %; Immature Granulocytes # (auto) 0.62 K/uL (0.00-0.02); Immature Granulocytes % (auto) 5.9 %; Lymphocytes # (auto) 1.97 K/uL (1.2-3.4); Lymphocytes % (auto) 18.9 %; Monocytes # (auto) 0.98 K/uL (0.11-0.59); Monocytes % (auto) 9.4 %; Neutrophils # (auto) 6.59 K/uL (1.4-6.5); Neutrophils % (auto) 63.2 %
--- NOTE | 2022-02-09 09:36 | Orthopedic Progress Note ---
Date of Service February 09, 2022 Assessment & Plan (1) Wound infection: Plan: Postop day 2 status post I&D left hand abscess Culture showing staph species, will cont with current Abx, currently on Vancomycin. Continue daily dressing changes. encouraged patient to continue to elevate above heart level, encouraged ROM as tolerated of the digits. Admission and Anticipated Discharge Date Admission Date: February 06, 2022 Subjective POD #2 s/p Left hand incision and drainage of abscess Review of Systems Constitutional: no fever and no chills Respiratory: no cough and no dyspnea Cardiovascular: no chest pain, no dyspnea and no orthopnea Gastrointestinal: no abdominal pain, no nausea and no vomiting Physical Exam Physical Exam: Vital Signs Temp Pulse Pulse Resp BP BP Pulse Ox 02/09/22 07:12 36.6 C 54 L 16 143/79 H 97 02/08/22 22:58 36.5 C 64 16 158/82 H 94 02/08/22 19:14 36.9 C 64 18 121/66 96 02/08/22 16:00 60 02/08/22 14:59 36.7 C 63 18 125/75 98 Intake and Output 02/08/22 02/09/22 02/09/22 22:59 06:59 14:59 Intake Total 475 / 2720.04 200 / 2720.04 Balance 475 / 2720.04 200 / 2720.04 Intake: IV 375 / 1780.04 200 / 1780.04 Acetaminophen 1,000 mg In 100 100 / 300 200 / 300 ml @ 400 mls/h r IV Q8H [facility] Rx#: [id number] Vancomycin HCl 1,250 mg In 275 / 550 Sodium Chlorid e 0.9% 250 ml @ 200 mls/hr IV Q12H [facility] Rx#: [id number] Oral 100 / 940 Other: # Unmeasured Voi ds 2 1 Musculoskeletal: Left hand: Dressings removed today, there is a slight purulent drainage noted middle aspect of the incision from where the packing had been removed yesterday, there is skin maceration surrounding. there is also mild ecchymosis noted in the palm of the hand. he is able to move all digits, sensation intact to light touch, however states the tips of all digits "feel a little numb" radial pulse +2. Capillary refill is less than 2 seconds. Results & Data ([facility]) Vital Signs (Past 12 Hours) Vital Signs Temp Pulse Resp BP Pulse Ox 02/09/22 07:12 36.6 C 54 L 16 143/79 H 97 02/08/22 22:58 36.5 C 64 16 158/82 H 94 Laboratory Results Microbiology 02/07/22 17:00 Hand,Left Gram Stain - Final 02/07/22 17:00 Hand,Left Aerobic and Anaerobic Culture - Preliminary Staphylococcus aureus 02/06/22 21:19 Blood Aerobic Blood Culture - Preliminary No growth in Aerobic bottle after 48 hours. 02/06/22 21:19 Blood Anaerobic Blood Culture - Preliminary No growth in Anaerobic bottle after 48 hours. 02/06/22 21:25 Blood Aerobic Blood Culture - Preliminary No growth in Aerobic bottle after 48 hours. 02/06/22 21:25 Blood Anaerobic Blood Culture - Preliminary No growth in Anaerobic bottle after 48 hours. 02/07/22 17:00 Hand,Left Gram Stain - Final 02/07/22 17:00 Hand,Left Aerobic and Anaerobic Culture - Preliminary Staphylococcus species
[2022-02-09] MEDS: LISINOPRIL/HCTZ 20/25MG 1 TAB PO SCH (09:39)
[2022-02-09] MEDS ORDERED: cefTRIAXone SODIUM 2,000 MG in DEXTROSE 5% 50 ML IV SCH (12:00)
--- NOTE | 2022-02-09 13:54 | Medical Student Progress Note ---
Date of Service February 09, 2022 Assessment & Plan (1) Postoperative infection: Plan: Mr Martinez is 61 year-old male with a history of HTN, rheumatoid arthritis and psoriatic arthritis, currently on and celecoxib. He underwent left carpal tunnel release with UOC on 01/19. He was transferred from [facility] emergency department for concerns of pain, redness and swelling og his left hand that started recently. -Currently status post I&D day 2 -intraoperative cultures grew MSSA - WBC 10 down from 19 - Lactate 2.0 on 02/06 - blood cultures negative - discontinue vancomycin - start IV Cefazolin 2000 mg IV Q8H per ortho recommendations - frequent icing, Tylenol 1g q8h IV BELIA, morphine 3mg q3 IV PRN for pain, Dilaudid 0.5mg q6h PRN for breakthrough pain (2) Rheumatoid arthritis: Plan: currently on monthly cosentyx infusion continue home Celebrex (3) Psoriatic arthritis: Plan: currently on monthly cosentyx infusion--helps with nail pitting continue home Celebrex (4) Hypertension: Plan: continue home lisinopril hydrochlorothiazide 20/25 mg PO (5) Hypokalemia: Plan: resolved. 3.8 on AM labs Plan: diet: normal code: full ppx: scds dispo: ms/tele Admission and Anticipated Discharge Date Admission Date: February 06, 2022 Supervising Attestation Medical Student Supervision Note: I was personally present during medical student patient encounter and independently interviewed and examined the patient and verified the jackson history and physical, reviewed labs and image studies, discussed the case with Kerwin Lopez and agree with the findings and care plan. MSSA postop infection/abscess s/p I and D --- - continue IV abx - switch to cefazolin. - ortho following Subjective Mr Martinez is doing well today, post op day 2. His pain is well controlled with Tylenol. He reports pain levels of 1-2/10. He has better mobility oh his hand and less swelling. He is eating, voiding and had a bowel movement. Mani fevers, chills, numbness, tingling, nausea, vomiting Review of Systems Constitutional: no fever, no chills and no sweats Respiratory: no cough, no chest congestion and no dyspnea Cardiovascular: no chest pain and no dyspnea on exertion Integumentary: as per Subjective / HPI Physical Exam Constitutional: well developed and well nourished; no acute distress Respiratory: normal respiratory effort, lungs clear to auscultation Cardiovascular: RRR, no murmur, no edema Skin: + incision (L hand. post operative dressing ) and + nail pitting (bilateral) Results & Data ([facility]) Vital Signs (Past 12 Hours) Vital Signs Temp Pulse Resp BP Pulse Ox 02/09/22 07:12 36.6 C 54 L 16 143/79 H 97 Laboratory Results Laboratory Results WBC 10.43 K/uL (4.8-10.8) 02/09/22 07:37 RBC 4.45 M/uL (4.7-6.1) L 02/09/22 07:37 Hgb 13.4 g/dL (14.0-18.0) L 02/09/22 07:37 Hct 39.4 % (42-52) L 02/09/22 07:37 MCV 88.5 fL (80-100) 02/09/22 07:37 MCH 30.1 pg (25-34) 02/09/22 07:37 MCHC 34.0 g/dL (32-36) 02/09/22 07:37 RDW Std Deviation 46.6 fL (36.4-46.3) H 02/09/22 07:37 RDW Coeff of [place] 14.3 % (11.5-14.5) 02/09/22 07:37 Plt Count 324 K/uL (130-400) 02/09/22 07:37 MPV 9.3 fL (7.4-10.4) 02/09/22 07:37 Immature Gran % (Auto) 5.9 % 02/09/22 07:37 Neut % (Auto) 63.2 % 02/09/22 07:37 Lymph % (Auto) 18.9 % 02/09/22 07:37 [place] % (Auto) 9.4 % 02/09/22 07:37 Eos % (Auto) 2.1 % 02/09/22 07:37 Baso % (Auto) 0.5 % 02/09/22 07:37 Neut # (Auto) 6.59 K/uL (1.4-6.5) H 02/09/22 07:37 Lymph # (Auto) 1.97 K/uL (1.2-3.4) 02/09/22 07:37 [place] # (Auto) 0.98 K/uL (0.11-0.59) H 02/09/22 07:37 Eos # (Auto) 0.22 K/uL (0-0.5) 02/09/22 07:37 Baso # (Auto) 0.05 K/uL (0-0.2) 02/09/22 07:37 Immature Gran # (Auto) 0.62 K/uL (0.00-0.02) H 02/09/22 07:37 Sodium 138 mmol/L (136-145) 02/09/22 07:37 Potassium 3.8 mmol/L (3.5-5.1) 02/09/22 07:37 Chloride 106 mmol/L (98-107) 02/09/22 07:37 Carbon Dioxide 26 mmol/L (21-32) 02/09/22 07:37 Anion Gap 6 (3-11) 02/09/22 07:37 BUN 19 mg/dl (6-23) 02/09/22 07:37 Creatinine 0.73 mg/dl (0.6-1.4) 02/09/22 07:37 Est Cr Clr Drug Dosing 118.0 ml/min 02/09/22 07:37 Est GFR ( Amer) 116.9 ml/min 02/09/22 07:37 Est GFR (Non-Af Amer) 100.8 ml/min 02/09/22 07:37 BUN/Creatinine Ratio 26.0 (10-20) H 02/09/22 07:37 Glucose 94 mg/dl (70-99(Fasting)) 02/09/22 07:37 Lactate 2.0 mmol/L (0.4-2.0) 02/06/22 20:38 Calcium 8.5 mg/dl (8.5-10.1) 02/09/22 07:37 Total Bilirubin 0.7 mg/dl (0.2-1.0) 02/06/22 20:38 AST 21 U/L (13-39) 02/06/22 21:25 ALT 60 U/L (7-52) H 02/06/22 20:38 Alkaline Phosphatase 164 U/L (34-104) H 02/06/22 20:38 Total Protein 7.0 gm/dl (6.0-8.3) 02/06/22 20:38 Albumin 3.8 gm/dl (3.4-5.0) 02/06/22 20:38 Globulin 3.2 gm/dl (2.5-4.0) 02/06/22 20:38 Albumin/Globulin Ratio 1.2 (0.9-2) 02/06/22 20:38 Vancomycin Trough 7.3 mcg/ml (10-20) L 02/08/22 17:27 SARS-CoV-2, RNA, NAAT NEGATIVE (NEGATIVE) 02/06/22 21:15 Medications Administered Current Medications Lisinopril/HCTZ (Lisinopril/Hctz 20/25mg 1 Tab) 1 tab PO DAILY [facility] Stop: 03/10/22 10:29 Last Admin: 02/09/22 09:39 Dose: 1 tab Documented by: Acetaminophen (Ofirmev) 1,000 mg in 100 mls @ 400 mls/hr IV Q8H [facility]; Protocol Stop: 02/09/22 21:59 Last Infusion: 02/09/22 06:26 Dose: Infused Documented by: Cefazolin Sodium (Ancef 2000mg) 2,000 mg in 15 mls @ 2.5 mls/min IV Q8H [facility] Stop: 02/16/22 12:29 Morphine Sulfate (Morphine Sulfate 4 Mg/Ml 1 Ml Carp\Vial) 2 mg IV Q3H PRN PRN Reason: Severe Pain -07/18 Stop: 02/20/22 20:23
[2022-02-09] MEDS: ceFAZolin 2000MG 2,000 MG/15 ML SYR IV SCH ×2 (14:20→20:10)
--- NOTE | 2022-02-09 15:06 | Electrocardiogram Report ---
Test Reason : Blood Pressure : / mmHG Vent. Rate : 078 BPM Atrial Rate : 078 BPM P-R Int : 182 ms QRS Dur : 176 ms QT Int : 418 ms P-R-T Axes : 044 066 028 degrees QTc Int : 476 ms Normal sinus rhythm Right bundle branch block Abnormal ECG No previous ECGs available Confirmed by Berry Muñoz ([id number]) on 02/09/2022 3:06:30 PM Referred By: William Duffy Confirmed By:Berry Muñoz
[2022-02-09] MEDS ORDERED: AMOXICILLIN/CLAVULANATE 875 MG TAB PO SCH (17:00)
--- NOTE | 2022-02-09 18:29 | Progress Notes ---
DATE OF NOTE: 02/09/2022. SUBJECTIVE: The patient was seen at the bedside today. He notes decreased pain compared to prior to surgery. He is taking Tylenol and only very occasionally morphine. Denies fever or chills. OBJECTIVE: Left hand exam does show moderate swelling localized to the incision in the carpal tunnel . He has relatively supple motion of the digits without significant pain or discomfort. He has a sm all to moderate amount of serous drainage from the incision. His streaking erythema is gone. ASSESSMENT: Postop day 2 left hand I and D of abscess. PLAN: At this point in time, we will continue elevation and Bruno pillow. We will continue antibio tics, Ancef. We will plan for discharge tomorrow. On discharge, we will switch him to [facility] the medical treatment unit at [facility] given that he is from that area. We will also dis charge on Keflex orally with 5 additional days of Rocephin. Job ID: [id number]
[2022-02-10] MEDS: ceFAZolin 2000MG 2,000 MG/15 ML SYR IV SCH (04:43)
[2022-02-10 06:45] LABS: Hematocrit (blood only) 44.3 % (42-52); Hemoglobin 15.3 g/dL (14.0-18.0); Mean Corpuscular Hemoglobin 30.1 pg (25-34); Mean Corpuscular Hgb Conc 34.5 g/dL (32-36); Mean Platelet Volume 9.1 fL (7.4-10.4); Platelet Count 369 K/uL (130-400); RDW Coefficient of Variation 14.4 % (11.5-14.5); Red Blood Count 5.09 M/uL (4.7-6.1); White Blood Count 12.66 K/uL (4.8-10.8)
[2022-02-10] MEDS ORDERED: cefTRIAXone SODIUM 2,000 MG in DEXTROSE 5% 50 ML IV SCH (07:00)
[2022-02-10 07:06] LABS: BUN Creatinine Ratio 24.1 (10-20); Calcium 9.1 mg/dl (8.5-10.1); Creatinine Clr Calc Pharmacy 103.8 ml/min; Est GFR (African American) 110.8 ml/min; Est GFR (Non-African American) 95.6 ml/min
[2022-02-10 07:17] LABS: ALC (manual) 2.51 K/uL (1.2-3.4); ANC (manual) 9.01 K/uL (1.4-6.5); Eosinophils # (manual) 0.34 K/uL (0-0.5); Eosinophils % (manual) 2.7 %; Lymphocytes # (manual) 2.51 K/uL (1.2-3.4); Lymphocytes % (manual) 19.8 %; Metamyelocytes # (manual) 0.11 K/uL (0-0); Metamyelocytes % (manual) 0.9 %; Monocytes # (manual) 0.57 K/uL (0.11-0.59); Monocytes % (manual) 4.5 %; Myelocytes # (manual) 0.11 K/uL (0-0); Myelocytes % (manual) 0.9 %; Neutrophils # (manual) 9.01 K/uL (1.4-6.5); Neutrophils % (manual) 71.2 %; RBC Morphology Unremarkable
[2022-02-10] MEDS: LISINOPRIL/HCTZ 20/25MG 1 TAB PO SCH (08:55)
--- NOTE | 2022-02-10 09:33 | Orthopedic Progress Note ---
Date of Service February 10, 2022 Assessment & Plan (1) Wound infection: Plan: Postop day 3 status post I&D left hand abscess Culture showing staph species, will cont with current Abx, currently on Vancomycin. Continue daily dressing changes. encouraged patient to continue to elevate above heart level, encouraged ROM as tolerated of the digits. He is ready for discharge at this point in time. We will discharge him on Keflex 14 days, 1000 mg 4 times daily. We will also place him on Rocephin for 5 days at the medical treatment unit in [place]. We will do 2 g daily. Follow-up with Dr. Liang on Monday in [place] Should be discharged with Bruno álvarez and with IV in place Admission and Anticipated Discharge Date Admission Date: February 06, 2022 Subjective He is doing well today. He notes less pain and decreased swelling. Physical Exam Physical Exam: Examination shows less streaking erythema. He has small to mod amount of purulent draining on his dressing. Dressing was changed today Results & Data ([facility]) Vital Signs (Past 12 Hours) Vital Signs Temp Pulse Resp BP BP Pulse Ox 02/10/22 07:30 36.5 C 55 L 18 152/93 H 99 02/09/22 23:18 36.6 C 60 18 150/80 H 99
--- NOTE | 2022-02-10 10:25 | Med Student Discharge Summary ---
Date of Service February 10, 2022 Admission HPI Per Admitting Provider This is a 61-year-old male with a notable history of hypertension and rheumatoid+psoriatic arthritis (not currently on any therapies) who underwent LEFT carpal tunnel release with UOP on 01/19 who presents to [facility] as a direct transfer from [facility] emergency department out of concerns for postoperative infection. Patient reportedly began experiencing increased redness and swelling around this area over the last several days. He said that there has been increased pain around the site. He reports mild numbness of the fingertips. His outpatient orthopedist did start him on antibiotics, which he has not begun. Unfortunately despite this, the redness/pain continued and has worsened. He presented to [facility] emergency department out of concerns for infection, who then requested transfer here for I&D capabilities tomorrow. I spoke with the [facility] admissions supervisor, Freda, to discuss case and obtain more information. She spoke with Dr. Liang, who agreed to see patient tomorrow for likely I&D. Otherwise, before this event, patient says that his only relevant "health event" was recently having a respiratory illness approximately 4 to 5 days ago, for which he did take prednisone for several days. He has not been on prednisone since this time. He denies taking prednisone as chronic prednisone. Report was received directly from patient's nurse at [facility]. During his ER course, a 20-gauge needle was placed in his right antecubital vein. He received clindamycin at 1443, Unasyn at 1647 and vancomycin at 1647. He was given 1 L of fluid. Dilaudid 1 mg and morphine 4 mg were given at 1600 and 1700, respectively. Labs were significant for sodium 133, potassium 3.5, white count 19.4, CRP 26.9, lactate 2.07. She was afebrile. Admission Exam (Per Admitting) Constitutional well developed and well nourished; no acute distress Neck normal visual inspection Respiratory normal respiratory effort, lungs clear to auscultation normal respiratory effort Auscultation: lungs clear to auscultation bilaterally Cardiovascular RRR, no murmur, no edema Rate/Rhythm: regular rate and regular rhythm Skin + scar, + incision (L hand. post operative dressing ) and + nail pitting (bilateral) Neurologic moves all extremities Psychiatric Orientation: alert and oriented x 3 Discharge Exam Constitutional well developed and well nourished; no acute distress Neck normal visual inspection Respiratory normal respiratory effort, lungs clear to auscultation normal respiratory effort Auscultation: lungs clear to auscultation bilaterally Cardiovascular RRR, no murmur, no edema Rate/Rhythm: regular rate and regular rhythm Skin + scar, + incision (L hand. post operative dressing ) and + nail pitting ( bilateral) Neurologic moves all extremities Psychiatric Orientation: alert and oriented x 3 Discharge Data Consultations 02/06/22 20:29 Consult Orthopedic Surgery Routine Procedures Performed Operation Date: 02/07/22 13:05 Actual Procedures p Left Hand Incision and Drainage(Left) - Jus Liang MD Hospital Course (1) Postoperative infection: Mr Martinez is 61 year-old male with a history of HTN, rheumatoid arthritis and psoriatic arthritis, currently on cosentyx and celecoxib. He underwent left carpal tunnel release with UOC on 01/19. He was transferred from [place] ED for concern of post operative infection, having failed outpatient antibiotics -was empirically started on IV Vancomycin/Piptazo, deescalated to Vanc, deescalated to Ceftriaxone. -I&D done on 02/07 -intraoperative cultures grew MSSA, resistant to erythromycin and clindamycine -blood cultures negative -Patient to continue IV Ceftriaxone 2000 mg IV Q24 for 5 days outpatient at [facility] per ortho -Patient to start Cephalexin 1000 mg oral QID for 14 days per ortho concurrently with ceftriaxone -Change dressing daily at home -hydrocodone-acetaminophen PO TID PRN -did not require narcotics in the past few days prior to dispo (2) Rheumatoid arthritis: currently on monthly cosentyx infusion continue home Celebrex (3) Psoriatic arthritis: currently on monthly cosentyx infusion--helps with nail pitting continue home Celebrex (4) Hypertension: continue home lisinopril hydrochlorothiazide 20/25 mg PO (5) Hypokalemia: resolved. 4.0 on AM labs Discharge Plan Discharge Items Patient Disposition: Home - Self-Care Reason For Visit: POSTOPERATIVE INFECTION,LT WRIST Discharge Diagnosis: postoperative infection Activity: Per Instructions section Activity Comment: Please continue physical therapy Exercises between 5 and 10 times a day Lifting: No more than 10 pounds Bathing: Keep incision dry Weightbearing: Full weightbearing Non-emergency contact: Primary Care Provider and Surgeon Call non-emergency contact if: you have any medication questions, your symptoms worsen and you have a fever Follow-up/Referrals: Jus Liang MD [Physician] - 02/14/22 2:50 pm (Appointment will be in the [place] office) Sandeep Mcfarland M.D. [Primary Care Provider] - 02/18/22 12:45 pm (hosp discharge f/u w/in 1 wk) Diet: Regular Addtl Attending Provider Instructions: You were admitted to the hospital for infection of your left hand after recent carpal tunnel surgery. The area was drained and you were treated with IV antibiotics. No heavy lifting with the left hand. You are prescribed oral antibiotic, Keflex, 1000 mg 4 times a day for 14 days. You will take this while receiving the IV antibiotics. We will also make arrangements for you to be seen at the medical treatment unit in [place] for IV outpatient antibiotics. This will be a once a day dose of Rocephin for 5 days. Please keep your IV in upon discharge. Pending Studies at Discharge: No Stand-Alone Forms: My [facility], Smoking Cessation Medications and DC Order Prescriptions: New cephalexin 500 mg capsule 1,000 mg PO QID 14 Days Qty: 112 RF: 0 hydrocodone-acetaminophen 5-325 mg tablet 1 tab PO TID PRN (Reason: pain) Qty: 14 RF: 0 Continued celecoxib 200 mg capsule 200 mg PO DAILY RF: 0 terazosin 1 mg capsule 5 mg PO DAILY RF: 0 lisinopril-hydrochlorothiazide 20-25 mg tablet 20 - 25 tab PO DAILY RF: 0 Discharge Orders: Discharge Order (Routine); Ordered 02/10/22 Ordered By: Naz Vieira Admission Data Admit Date/Time: 02/06/22 20:18 Attending Provider: Naz Vieira Admit Provider: Jack Alba Primary Care Provider: Sandeep Mcfarland Other Providers: Jus Liang Other Interventions: Discharge Summary Assessment (RN) Last Done: 02/10/22 13:39 Supervising Attestation Medical Student Supervision Note: I was personally present during medical student patient encounter and independently interviewed and examined the patient and verified the jackson history and physical, reviewed labs and image studies, discussed the case with Kerwin Lopez and agree with the findings and care plan. Post op hand infection in setting of immunosuppressed status - s/p I and D. to continue IV ceftriaxone for 5 more days. keflex 1000mgs qid for 14 days. outpatient ortho followup. will need follow up cbc on discharge Results & Data Laboratory Data Result diagrams: 02/10/22 06:21 02/10/22 06:21 Lab Results 02/06/22 02/06/22 02/06/22 Range/Units 20:38 20:38 20:38 WBC 19.24 H (4.8-10.8) K/uL RBC 5.45 (4.7-6.1) M/uL Hgb 16.2 (14.0-18.0) g/dL Hct 46.6 (42-52) % MCV 85.5 (80-100) fL MCH 29.7 (25-34) pg MCHC 34.8 (32-36) g/dL RDW Std Deviation 42.5 (36.4-46.3) fL RDW Coeff of [place] 13.6 (11.5-14.5) % Plt Count 272 (130-400) K/uL MPV 9.6 (7.4-10.4) fL Immature Gran % (Auto) 0.6 % Neut % (Auto) 81.4 % Lymph % (Auto) 8.1 % [place] % (Auto) 8.8 % Eos % (Auto) 0.9 % Baso % (Auto) 0.2 % Neut # (Auto) 15.66 H (1.4-6.5) K/uL Lymph # (Auto) 1.56 (1.2-3.4) K/uL [place] # (Auto) 1.70 H (0.11-0.59) K/uL Eos # (Auto) 0.18 (0-0.5) K/uL Baso # (Auto) 0.03 (0-0.2) K/uL Immature Gran # (Auto) 0.11 H (0.00-0.02) K/uL Neutrophils % (Manual) % Lymphocytes % (Manual) % Monocytes % (Manual) % Eosinophils % (Manual) % Metamyelocytes % (Man) % Myelocytes % (Man) % Neutrophils # (Manual) (1.4-6.5) K/uL Total Absolute Neuts (1.4-6.5) K/uL Lymphocytes # (Manual) (1.2-3.4) K/uL Total Abs Lymphocytes (1.2-3.4) K/uL Monocytes # (Manual) (0.11-0.59) K/uL Eosinophils # (Manual) (0-0.5) K/uL Metamyelocytes # (Man) (0-0) K/uL Myelocytes # (Manual) (0-0) K/uL RBC Morphology Sodium 130 L (136-145) mmol/L Potassium (3.5-5.1) mmol/L Chloride 98 (98-107) mmol/L Carbon Dioxide 21 (21-32) mmol/L Anion Gap 11 (3-11) BUN 17 (6-23) mg/dl Creatinine 0.88 (0.6-1.4) mg/dl Est Cr Clr Drug Dosing Not Reportable Est GFR ( Amer) 108.2 ml/min Est GFR (Non-Af Amer) 93.4 ml/min BUN/Creatinine Ratio 19.3 (10-20) Glucose 168 H (70-99(Fasting)) mg/dl Lactate 2.0 (0.4-2.0) mmol/L Calcium 8.9 (8.5-10.1) mg/dl Total Bilirubin 0.7 (0.2-1.0) mg/dl AST (13-39) U/L ALT 60 H (7-52) U/L Alkaline Phosphatase 164 H (34-104) U/L Total Protein 7.0 (6.0-8.3) gm/dl Albumin 3.8 (3.4-5.0) gm/dl Globulin 3.2 (2.5-4.0) gm/dl Albumin/Globulin Ratio 1.2 (0.9-2) Vancomycin Trough (10-20) mcg/ml SARS-CoV-2, RNA, NAAT (NEGATIVE) 02/06/22 02/06/22 02/07/22 Range/Units 21:15 21:25 07:25 WBC 15.88 H (4.8-10.8) K/uL RBC 4.74 (4.7-6.1) M/uL Hgb 14.0 (14.0-18.0) g/dL Hct 40.7 L (42-52) % MCV 85.9 (80-100) fL MCH 29.5 (25-34) pg MCHC 34.4 (32-36) g/dL RDW Std Deviation 43.1 (36.4-46.3) fL RDW Coeff of [place] 13.7 (11.5-14.5) % Plt Count 235 (130-400) K/uL MPV 9.5 (7.4-10.4) fL Immature Gran % (Auto) 0.6 % Neut % (Auto) 79.8 % Lymph % (Auto) 7.1 % [place] % (Auto) 11.1 % Eos % (Auto) 1.3 % Baso % (Auto) 0.1 % Neut # (Auto) 12.67 H (1.4-6.5) K/uL Lymph # (Auto) 1.12 L (1.2-3.4) K/uL [place] # (Auto) 1.77 H (0.11-0.59) K/uL Eos # (Auto) 0.21 (0-0.5) K/uL Baso # (Auto) 0.02 (0-0.2) K/uL Immature Gran # (Auto) 0.09 H (0.00-0.02) K/uL Neutrophils % (Manual) % Lymphocytes % (Manual) % Monocytes % (Manual) % Eosinophils % (Manual) % Metamyelocytes % (Man) % Myelocytes % (Man) % Neutrophils # (Manual) (1.4-6.5) K/uL Total Absolute Neuts (1.4-6.5) K/uL Lymphocytes # (Manual) (1.2-3.4) K/uL Total Abs Lymphocytes (1.2-3.4) K/uL Monocytes # (Manual) (0.11-0.59) K/uL Eosinophils # (Manual) (0-0.5) K/uL Metamyelocytes # (Man) (0-0) K/uL Myelocytes # (Manual) (0-0) K/uL RBC Morphology Sodium (136-145) mmol/L Potassium 3.3 L (3.5-5.1) mmol/L Chloride (98-107) mmol/L Carbon Dioxide (21-32) mmol/L Anion Gap (3-11) BUN (6-23) mg/dl Creatinine (0.6-1.4) mg/dl Est Cr Clr Drug Dosing Est GFR ( Amer) ml/min Est GFR (Non-Af Amer) ml/min BUN/Creatinine Ratio (10-20) Glucose (70-99(Fasting)) mg/dl Lactate (0.4-2.0) mmol/L Calcium (8.5-10.1) mg/dl Total Bilirubin (0.2-1.0) mg/dl AST 21 (13-39) U/L ALT (7-52) U/L Alkaline Phosphatase (34-104) U/L Total Protein (6.0-8.3) gm/dl Albumin (3.4-5.0) gm/dl Globulin (2.5-4.0) gm/dl Albumin/Globulin Ratio (0.9-2) Vancomycin Trough (10-20) mcg/ml SARS-CoV-2, RNA, NAAT NEGATIVE (NEGATIVE) 02/07/22 02/08/22 02/08/22 Range/Units 07:25 06:49 06:49 WBC 19.36 H (4.8-10.8) K/uL RBC 4.37 L (4.7-6.1) M/uL Hgb 13.2 L (14.0-18.0) g/dL Hct 38.6 L (42-52) % MCV 88.3 (80-100) fL MCH 30.2 (25-34) pg MCHC 34.2 (32-36) g/dL RDW Std Deviation 45.2 (36.4-46.3) fL RDW Coeff of [place] 14.0 (11.5-14.5) % Plt Count 263 (130-400) K/uL MPV 9.7 (7.4-10.4) fL Immature Gran % (Auto) 0.7 % Neut % (Auto) 85.9 % Lymph % (Auto) 6.3 % [place] % (Auto) 6.8 % Eos % (Auto) 0.2 % Baso % (Auto) 0.1 % Neut # (Auto) 16.66 H (1.4-6.5) K/uL Lymph # (Auto) 1.22 (1.2-3.4) K/uL [place] # (Auto) 1.31 H (0.11-0.59) K/uL Eos # (Auto) 0.03 (0-0.5) K/uL Baso # (Auto) 0.01 (0-0.2) K/uL Immature Gran # (Auto) 0.13 H (0.00-0.02) K/uL Neutrophils % (Manual) % Lymphocytes % (Manual) % Monocytes % (Manual) % Eosinophils % (Manual) % Metamyelocytes % (Man) % Myelocytes % (Man) % Neutrophils # (Manual) (1.4-6.5) K/uL Total Absolute Neuts (1.4-6.5) K/uL Lymphocytes # (Manual) (1.2-3.4) K/uL Total Abs Lymphocytes (1.2-3.4) K/uL Monocytes # (Manual) (0.11-0.59) K/uL Eosinophils # (Manual) (0-0.5) K/uL Metamyelocytes # (Man) (0-0) K/uL Myelocytes # (Manual) (0-0) K/uL RBC Morphology Sodium 134 L (136-145) mmol/L Potassium 3.3 L (3.5-5.1) mmol/L Chloride 102 (98-107) mmol/L Carbon Dioxide 25 (21-32) mmol/L Anion Gap 7 (3-11) BUN 13 (6-23) mg/dl Creatinine 0.77 0.72 (0.6-1.4) mg/dl Est Cr Clr Drug Dosing 111.3 119.7 Est GFR ( Amer) 114.3 117.5 ml/min Est GFR (Non-Af Amer) 98.6 101.4 ml/min BUN/Creatinine Ratio 16.9 (10-20) Glucose 113 H (70-99(Fasting)) mg/dl Lactate (0.4-2.0) mmol/L Calcium 8.3 L (8.5-10.1) mg/dl Total Bilirubin (0.2-1.0) mg/dl AST (13-39) U/L ALT (7-52) U/L Alkaline Phosphatase (34-104) U/L Total Protein (6.0-8.3) gm/dl Albumin (3.4-5.0) gm/dl Globulin (2.5-4.0) gm/dl Albumin/Globulin Ratio (0.9-2) Vancomycin Trough (10-20) mcg/ml SARS-CoV-2, RNA, NAAT (NEGATIVE) 02/08/22 02/08/22 02/09/22 Range/Units 06:49 17:27 07:37 WBC (4.8-10.8) K/uL RBC (4.7-6.1) M/uL Hgb (14.0-18.0) g/dL Hct (42-52) % MCV (80-100) fL MCH (25-34) pg MCHC (32-36) g/dL RDW Std Deviation (36.4-46.3) fL RDW Coeff of [place] (11.5-14.5) % Plt Count (130-400) K/uL MPV (7.4-10.4) fL Immature Gran % (Auto) % Neut % (Auto) % Lymph % (Auto) % [place] % (Auto) % Eos % (Auto) % Baso % (Auto) % Neut # (Auto) (1.4-6.5) K/uL Lymph # (Auto) (1.2-3.4) K/uL [place] # (Auto) (0.11-0.59) K/uL Eos # (Auto) (0-0.5) K/uL Baso # (Auto) (0-0.2) K/uL Immature Gran # (Auto) (0.00-0.02) K/uL Neutrophils % (Manual) % Lymphocytes % (Manual) % Monocytes % (Manual) % Eosinophils % (Manual) % Metamyelocytes % (Man) % Myelocytes % (Man) % Neutrophils # (Manual) (1.4-6.5) K/uL Total Absolute Neuts (1.4-6.5) K/uL Lymphocytes # (Manual) (1.2-3.4) K/uL Total Abs Lymphocytes (1.2-3.4) K/uL Monocytes # (Manual) (0.11-0.59) K/uL Eosinophils # (Manual) (0-0.5) K/uL Metamyelocytes # (Man) (0-0) K/uL Myelocytes # (Manual) (0-0) K/uL RBC Morphology Sodium 135 L 138 (136-145) mmol/L Potassium 4.2 D 3.8 (3.5-5.1) mmol/L Chloride 105 106 (98-107) mmol/L Carbon Dioxide 26 26 (21-32) mmol/L Anion Gap 4 6 (3-11) BUN 17 19 (6-23) mg/dl Creatinine 0.71 0.73 (0.6-1.4) mg/dl Est Cr Clr Drug Dosing 121.3 118.0 Est GFR ( Amer) 118.2 116.9 ml/min Est GFR (Non-Af Amer) 102.0 100.8 ml/min BUN/Creatinine Ratio 23.9 H 26.0 H (10-20) Glucose 114 H 94 (70-99(Fasting)) mg/dl Lactate (0.4-2.0) mmol/L Calcium 8.3 L 8.5 (8.5-10.1) mg/dl Total Bilirubin (0.2-1.0) mg/dl AST (13-39) U/L ALT (7-52) U/L Alkaline Phosphatase (34-104) U/L Total Protein (6.0-8.3) gm/dl Albumin (3.4-5.0) gm/dl Globulin (2.5-4.0) gm/dl Albumin/Globulin Ratio (0.9-2) Vancomycin Trough 7.3 L (10-20) mcg/ml SARS-CoV-2, RNA, NAAT (NEGATIVE) 02/09/22 02/10/22 02/10/22 Range/Units 07:37 06:21 06:21 WBC 10.43 12.66 H (4.8-10.8) K/uL RBC 4.45 L 5.09 (4.7-6.1) M/uL Hgb 13.4 L 15.3 (14.0-18.0) g/dL Hct 39.4 L 44.3 (42-52) % MCV 88.5 87.0 (80-100) fL MCH 30.1 30.1 (25-34) pg MCHC 34.0 34.5 (32-36) g/dL RDW Std Deviation 46.6 H 46.0 (36.4-46.3) fL RDW Coeff of [place] 14.3 14.4 (11.5-14.5) % Plt Count 324 369 (130-400) K/uL MPV 9.3 9.1 (7.4-10.4) fL Immature Gran % (Auto) 5.9 % Neut % (Auto) 63.2 % Lymph % (Auto) 18.9 % [place] % (Auto) 9.4 % Eos % (Auto) 2.1 % Baso % (Auto) 0.5 % Neut # (Auto) 6.59 H (1.4-6.5) K/uL Lymph # (Auto) 1.97 (1.2-3.4) K/uL [place] # (Auto) 0.98 H (0.11-0.59) K/uL Eos # (Auto) 0.22 (0-0.5) K/uL Baso # (Auto) 0.05 (0-0.2) K/uL Immature Gran # (Auto) 0.62 H (0.00-0.02) K/uL Neutrophils % (Manual) 71.2 % Lymphocytes % (Manual) 19.8 % Monocytes % (Manual) 4.5 % Eosinophils % (Manual) 2.7 % Metamyelocytes % (Man) 0.9 % Myelocytes % (Man) 0.9 % Neutrophils # (Manual) 9.01 H (1.4-6.5) K/uL Total Absolute Neuts 9.01 H (1.4-6.5) K/uL Lymphocytes # (Manual) 2.51 (1.2-3.4) K/uL Total Abs Lymphocytes 2.51 (1.2-3.4) K/uL Monocytes # (Manual) 0.57 (0.11-0.59) K/uL Eosinophils # (Manual) 0.34 (0-0.5) K/uL Metamyelocytes # (Man) 0.11 H (0-0) K/uL Myelocytes # (Manual) 0.11 H (0-0) K/uL RBC Morphology Unremarkable Sodium 138 (136-145) mmol/L Potassium 4.0 (3.5-5.1) mmol/L Chloride 105 (98-107) mmol/L Carbon Dioxide 26 (21-32) mmol/L Anion Gap 7 (3-11) BUN 20 (6-23) mg/dl Creatinine 0.83 (0.6-1.4) mg/dl Est Cr Clr Drug Dosing 103.8 Est GFR ( Amer) 110.8 ml/min Est GFR (Non-Af Amer) 95.6 ml/min BUN/Creatinine Ratio 24.1 H (10-20) Glucose 102 H (70-99(Fasting)) mg/dl Lactate (0.4-2.0) mmol/L Calcium 9.1 (8.5-10.1) mg/dl Total Bilirubin (0.2-1.0) mg/dl AST (13-39) U/L ALT (7-52) U/L Alkaline Phosphatase (34-104) U/L Total Protein (6.0-8.3) gm/dl Albumin (3.4-5.0) gm/dl Globulin (2.5-4.0) gm/dl Albumi Administered Medications Lisinopril/HCTZ (Lisinopril/Hctz 20/25mg 1 Tab) 1 tab PO DAILY [facility] Stop: 03/10/22 10:29 Last Admin: 02/10/22 08:55 Dose: 1 tab Documented by: [id number] Admin: 02/09/22 09:39 Dose: 1 tab Documented by: [id number] Admin: 02/08/22 11:36 Dose: 1 tab Documented by: [id number] Ceftriaxone Sodium 2,000 mg/ (Dextrose) 70 mls @ 140 mls/hr IV Q24H [facility]; Protocol Stop: 02/17/22 06:59 Last Infusion: 02/10/22 08:04 Dose: 0 mls/hr Documented by: [id number] Admin: 02/10/22 06:28 Dose: 140 mls/hr Documented by: [id number] Discontinued Medications Bupivacaine HCl (Bupivacaine 0.5 % 5 Mg/1 Ml Mpf 30ml Vial) Confirm Administered Dose 30 ml .ROUTE .STK-MED ONE Stop: 02/07/22 16:37 Last Admin: 02/07/22 17:34 Dose: 10 ml Documented by: [id number] Cefazolin Sodium (Cefazolin 2,000 Mg/15 Ml Iv Push) Confirm Administered Dose 2,000 mg IV .STK-MED ONE Stop: 02/07/22 16:41 Last Admin: 02/07/22 16:45 Dose: Not Given Documented by: [id number] Fentanyl Citrate (Fentanyl Citrate 100 Mcg/2 Ml Vial) 25 mcg IV Q5M PRN PRN Reason: PACU Use Only-Pain Stop: 02/08/22 00:22 Last Admin: 02/07/22 18:17 Dose: 25 mcg Documented by: [id number] Admin: 02/07/22 18:12 Dose: 25 mcg Documented by: [id number] Admin: 02/07/22 18:07 Dose: 25 mcg Documented by: [id number] Admin: 02/07/22 18:02 Dose: 25 mcg Documented by: [id number] Hydromorphone HCl (Hydromorphone Inj 0.5 Mg/0.5 Ml Syr) 0.5 mg IV Q6H PRN PRN Reason: Moderate Pain Stop: 02/20/22 20:23 Last Admin: 02/07/22 08:41 Dose: 0.5 mg Documented by: [id number] Hydromorphone HCl (Hydromorphone Inj 0.5 Mg/0.5 Ml Syr) 0.5 mg IV NOW STA Stop: 02/07/22 18:27 Last Admin: 02/07/22 18:29 Dose: 0.5 mg Documented by: [id number] Sodium Chloride (Nss 1000ml) 1,000 mls @ 80 mls/hr IV .[id number] [facility] Stop: 03/08/22 20:29 Last Admin: 02/07/22 10:45 Dose: Not Given Documented by: [id number] Infusion: 02/07/22 10:45 Dose: 0 mls/hr Documented by: [id number] Admin: 02/06/22 21:56 Dose: 80 mls/hr Documented by: [id number] Piperacillin Sod/Tazobactam (Sod 4.5 gm/ Dextrose) 120 mls @ 200 mls/hr IV 2200 ONE; Protocol Stop: 02/06/22 22:35 Last Infusion: 02/06/22 22:51 Dose: 0 mls/hr Documented by: [id number] Admin: 02/06/22 22:14 Dose: 200 mls/hr Documented by: [id number] Piperacillin Sod/Tazobactam (Sod 3.375 gm/ Dextrose) 115 mls @ 28.75 mls/hr IV Q8H [facility]; Protocol Stop: 02/14/22 03:59 Last Infusion: 02/08/22 14:54 Dose: 0 mls/hr Documented by: [id number] Admin: 02/08/22 11:36 Dose: 28.8 mls/hr Documented by: [id number] Infusion: 02/08/22 08:40 Dose: 0 mls/hr Documented by: [id number] Admin: 02/08/22 04:26 Dose: 28.8 mls/hr Documented by: [id number] Infusion: 02/08/22 00:40 Dose: 0 mls/hr Documented by: [id number] Admin: 02/07/22 20:40 Dose: 28.8 mls/hr Documented by: [id number] Infusion: 02/07/22 16:25 Dose: 0 mls/hr Documented by: [id number] Admin: 02/07/22 12:01 Dose: 28.8 mls/hr Documented by: [id number] Infusion: 02/07/22 08:23 Dose: 0 mls/hr Documented by: [id number] Admin: 02/07/22 03:39 Dose: 28.8 mls/hr Documented by: [id number] Vancomycin HCl 1,750 mg/ (Sodium Chloride) 535 mls @ 200 mls/hr IV 2200 ONE Stop: 02/07/22 00:40 Last Infusion: 02/07/22 00:58 Dose: 0 mls/hr Documented by: [id number] Admin: 02/06/22 22:15 Dose: 200 mls/hr Documented by: [id number] Acetaminophen (Ofirmev) 1,000 mg in 100 mls @ 400 mls/hr IV Q8H [facility]; Protocol Stop: 02/09/22 21:59 Last Infusion: 02/09/22 14:38 Dose: 0 mls/hr Documented by: [id number] Admin: 02/09/22 14:22 Dose: 400 mls/hr Documented by: [id number] Infusion: 02/09/22 06:26 Dose: 0 mls/hr Documented by: [id number] Admin: 02/09/22 06:01 Dose: 400 mls/hr Documented by: [id number] Infusion: 02/08/22 23:21 Dose: 0 mls/hr Documented by: [id number] Admin: 02/08/22 23:06 Dose: 400 mls/hr Documented by: [id number] Admin: 02/08/22 21:30 Dose: Not Given Documented by: [id number] Infusion: 02/08/22 15:12 Dose: 0 mls/hr Documented by: [id number] Admin: 02/08/22 14:57 Dose: 400 mls/hr Documented by: [id number] Infusion: 02/08/22 06:23 Dose: 0 mls/hr Documented by: [id number] Admin: 02/08/22 06:04 Dose: 400 mls/hr Documented by: [id number] Infusion: 02/07/22 22:25 Dose: 0 mls/hr Documented by: [id number] Admin: 02/07/22 22:07 Dose: 400 mls/hr Documented by: [id number] Infusion: 02/07/22 14:05 Dose: 0 mls/hr Documented by: [id number] Admin: 02/07/22 13:43 Dose: 400 mls/hr Documented by: [id number] Infusion: 02/07/22 06:26 Dose: 0 mls/hr Documented by: [id number] Admin: 02/07/22 06:10 Dose: 400 mls/hr Documented by: [id number] Infusion: 02/06/22 22:31 Dose: 0 mls/hr Documented by: [id number] Admin: 02/06/22 22:15 Dose: 400 mls/hr Documented by: [id number] Vancomycin HCl 1,250 mg/ (Sodium Chloride) 275 mls @ 200 mls/hr IV Q12H [facility] Stop: 02/14/22 05:59 Last Infusion: 02/08/22 19:30 Dose: 0 mls/hr Documented by: [id number] Admin: 02/08/22 18:01 Dose: 200 mls/hr Documented by: [id number] Infusion: 02/08/22 07:28 Dose: 0 mls/hr Documented by: [id number] Admin: 02/08/22 06:03 Dose: 200 mls/hr Documented by: [id number] Infusion: 02/07/22 20:37 Dose: 0 mls/hr Documented by: [id number] Admin: 02/07/22 19:07 Dose: 200 mls/hr Documented by: [id number] Infusion: 02/07/22 08:23 Dose: 0 mls/hr Documented by: [id number] Admin: 02/07/22 06:10 Dose: 200 mls/hr Documented by: [id number] Potassium Chloride/Sodium Chloride (Normal Saline W/20 Meq Kcl) 20 meq in 1,000 mls @ 80 mls/hr IV .[id number] [facility] Stop: 03/09/22 10:29 Last Admin: 02/08/22 11:42 Dose: Not Given Documented by: [id number] Infusion: 02/08/22 11:42 Dose: 0 mls/hr Documented by: [id number] Infusion: 02/08/22 11:37 Dose: 0 mls/hr Documented by: [id number] Admin: 02/08/22 02:37 Dose: 80 mls/hr Documented by: [id number] Infusion: 02/08/22 02:37 Dose: 80 mls/hr Documented by: [id number] Infusion: 02/07/22 19:07 Dose: 80 mls/hr Documented by: [id number] Infusion: 02/07/22 16:00 Dose: 0 mls/hr Documented by: [id number] Admin: 02/07/22 11:07 Dose: 80 mls/hr Documented by: [id number] Cefazolin Sodium (Ancef 2000mg) 2,000 mg in 15 mls @ 3.75 mls/min IV TODAY@1700 [facility] Stop: 02/07/22 23:59 Last Admin: 02/07/22 17:12 Dose: 3.75 mls/min Documented by: [id number] Lactated Ringer's (Lr) 1,000 mls @ 15 mls/hr IV .Q24H [facility] Stop: 03/09/22 16:59 Last Admin: 02/07/22 19:07 Dose: Not Given Documented by: [id number] Vancomycin HCl 1,500 mg/ (Sodium Chloride) 530 mls @ 200 mls/hr IV Q12H [facility] Stop: 02/16/22 05:59 Last Infusion: 02/09/22 09:40 Dose: 0 mls/hr Documented by: [id number] Admin: 02/09/22 06:20 Dose: 200 mls/hr Documented by: [id number] Cefazolin Sodium (Ancef 2000mg) 2,000 mg in 15 mls @ 2.5 mls/min IV Q8H [facility] Stop: 02/16/22 12:29 Last Admin: 02/10/22 04:43 Dose: 2.5 mls/min Documented by: [id number] Admin: 02/09/22 20:10 Dose: 2.5 mls/min Documented by: [id number] Admin: 02/09/22 14:20 Dose: 2.5 mls/min Documented by: [id number] Ketorolac Tromethamine (Ketorolac Tromethamine 15 Mg/Ml Vial) 15 mg IV NOW ONE Stop: 02/06/22 21:02 Last Admin: 02/06/22 21:56 Dose: 15 mg Documented by: [id number] Labetalol HCl (Labetalol Hcl Iv 5 Mg/Ml 20ml) Confirm Administered Dose 5 mg IV .STK-MED ONE Stop: 02/07/22 18:27 Last Admin: 02/07/22 20:04 Dose: Not Given Documented by: [id number] Labetalol HCl (Labetalol Hcl Iv 5 Mg/Ml 20ml) 5 mg IV NOW STA Stop: 02/07/22 18:27 Last Admin: 02/07/22 18:30 Dose: 5 mg Documented by: [id number] Cosigned by: [id number] Miscellaneous (Patient's Height And/Or Weight Needed) 1 ea N/A Q2H [facility] Stop: 02/06/22 23:59 Last Admin: 02/06/22 21:56 Dose: 1 ea Documented by: [id number] Morphine Sulfate (Morphine Sulfate 4 Mg/Ml 1 Ml Carp\\Vial) 3 mg IV Q3H PRN PRN Reason: Severe Pain Stop: 02/20/22 20:23 Last Admin: 02/07/22 12:12 Dose: 3 mg Documented by: [id number] Admin: 02/07/22 02:55 Dose: 3 mg Documented by: [id number] Admin: 02/06/22 20:48 Dose: 3 mg Documented by: [id number]
== END 2022-02-10 15:40 | disposition home or self-care (01) | DRG 856 ==
LOC: SUATTDRO 20:18 → 2W 20:18 → 3N 02-08 22:53